=== PATIENT | male | born 1955 | race Caucasian/White ===

== ENCOUNTER 2017-04-11 03:49 | Inpatient (IN) | payer MEDICAID, OTHER ==
--- NOTE | 2017-04-11 03:53 | EDPHY ---
H & P HPI/ROS: HPI CHIEF COMPLAINT: Left lateral chest and abdominal pain HISTORY OF PRESENT ILLNESS: This patient is 61-year-old male presents emergency room with pain describes as sharp stabbing worse when he takes a deep breath into his left lateral chest wall. If the area between his left lower rib cage lateral aspect and left upper abdomen. Patient tells me this started since 10:00 a.m. and as per persistent all day yesterday and into the evening tonight. He denies any abdominal pain with palpation but does state that he takes deep breath in he has sharp stabbing pain left lateral ribs is also worse when he moves. Denies trauma. He does report to me yesterday he had surgery at [facility] by Dr. Sherman. He reports to me that he had general anesthesia and had a deep pelvic abscess drained. States he did not stay overnight in the hospital when in in the morning and then was released at night. Denies fever, vomiting, diarrhea. Denies lower abdominal pain. Denies rectal pain. Pain is left lateral ribs worse with deep inspiration. Denies shortness of breath or chest pain. Past Medical History: Ischemic cardiomyopathy, V-tach, PTSD, chronic chest wall pain, coronary artery disease, AFib, hypertension, tobacco abuse Past Surgical History: AICD, pericardiocentesis Social History: Denies daily use of drugs alcohol tobacco products. Family History: Noncontributory ROS REVIEW OF SYSTEMS: A comprehensive 10 point review of systems is otherwise negative aside from elements mentioned in the history of present illness. Exam Constitutional appears dehydrated, dry mucous membrane, nontoxic triage nursing summary reviewed, vital signs reviewed, awake/alert. Eyes normal conjunctivae and sclera, EOMI, PERRLA. HENT normal inspection, atraumatic, moist mucus membranes, no epistaxis, neck supple/ no meningismus, no raccoon eyes. Respiratory clear to auscultation bilaterally, normal breath sounds, no respiratory distress, no wheezing. Cardiovascular chest wall there is nontender to palpation, rate normal, regular rhythm, no murmur, no edema, distal pulses normal. Gastrointestinal soft, non-tender, no rebound, no guarding, normal bowel sounds, no distension, no pulsatile mass. Genitourinary no CVA tenderness. Musculoskeletal no midline vertebral tenderness, full range of motion, no calf swelling, no tenderness of extremities, no meningismus, good pulses, neurovascularly intact. Skin pink, warm, & dry, no rash, skin atraumatic. Neurologic awake, alert and oriented x 3, AAOx3, moves all 4 extremities equally, motor intact, sensory intact, CN II-XII intact, normal cerebellar, normal vision, normal speech. Psychiatric normal mood/affect. Heme/Lymph/Immune no lymphadenopathy. 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 Impression time of EKG 4:17 a.m., this is sinus rhythm rate of 70 first-degree AV block [place] interval 216 Q-waves present V1 V2 V3 V4. Otherwise unremarkable EKG. T-wave flattening in inferior leads. ED x-ray chest two view: Negative for acute cardiopulmonary disease. Specifically I do not visualize a pneumothorax. 0520AM: Given this patient's left-sided lateral pleuritic pain he does have a positive D-dimer. Will proceed with CT angiogram of the chest. He does have risk factors given his age, recent surgery. Will also proceed with CT abdomen pelvis with IV contrast given recent abdominal surgery and left upper quadrant left lower lung pain 0540AM: Patient's CT scan chest abdomen pelvis shows a left lower lobe pneumonia with micro abscesses. Significant left lower lobe pneumonia. As well as a small abscess para colonic deep in the pelvis 4 cm. Given the patient 's having left-sided pleuritic pain there is no pulmonary embolism seen on the CT scan. However given that he has a pneumonia left lower lobe with microabscesses this makes this a complicated pneumonia. He is not hypoxic here. He does have white count. He does have left-sided pleuritic pain. I will cover him with broad-spectrum antibiotics IV vancomycin and IV Zosyn. The patient need to be admitted the hospital for this pneumonia. Infectious Disease will need to be consulted. I wonder due to his large perirectal abscess that was recently drain by Dr. Sherman on the 09 of April or 2 days ago that he may have seeded the left lower lobe from the infection is abdomen. I have updated the patient he is okay with being admitted. Broad-spectrum antibiotics been given. I will treat this as a complicated pneumonia. 0548AM: I spoke with Dr. Sherman about this patient. He understands the patient is coming in to [facility]. Plan will be for broad- spectrum antibiotics, infectious disease consult and admission to the hospitalist service. 0548AM: I spoke with the hospalist service who agrees to admit this patient. Dr. Chavis. Patient is hemodynamically stable no acute distress. Lactic acid less than 2. Vital signs noted. Patient updated. Agrees for admission. Source: Patient - Personal History Tetanus Vaccine Date: > 10 years - Medical/Surgical History Hx Asthma: Yes Hx Chronic Respiratory Disease: No Hx Diabetes: No Hx Cardiac Disease: Yes Hx Renal Disease: No Hx Cirrhosis: No Hx Alcoholism: No Hx HIV/AIDS: No Hx Splenectomy or Spleen Trauma: No Other PMH: Asthma, knee surgery,afib, V-tach,AICD, HTN, panic attacks since pacemaker inserted 3 mos ago. FALL WITH BAKERS CYST R KNEE - Social History Smoking Status: Former smoker Constitutional: Initial Vital Signs Temperature (C) 37.2 C 04/11/17 04:00 Heart Rate 74 04/11/17 04:00 Respiratory Rate 18 04/11/17 04:00 Blood Pressure 141/72 H 04/11/17 04:00 O2 Sat (%) 98 04/11/17 04:00 O2 Delivery Mode Room Air Allergies/Adverse Reactions: No Known Allergies Allergy (Unverified 04/11/17 03:53) Home Medications: Medication Instructions Recorded Albuterol [Proventil Inhaler HFA 2 puffs IH BID PRN 04/05/15 (*)] Apixaban [Eliquis] 5 mg PO BID 04/24/15 Aspirin [Aspirin 81mg (*)] 81 mg PO HS 04/24/15 Herbals/Supplements -Info Only 1 each PO DAILY 04/24/15 Ipratropium [Atrovent Hfa (*)] 2 puffs IH Q6 PRN 05/28/15 Sotalol HCl [Sotalol] 120 mg PO BID 05/28/15 Calcium Citrate [Citracal] 400 mg PO DAILY 06/04/15 Cholecalciferol Vit D3 [Vitamin D3 4,000 units PO DAILY 06/04/15 2000 units] Cyanocobalamin [Vitamin B12 (*)] 2,000 mcg PO HS 06/04/15 Multivitamins [Multivitamin (*)] 1 each PO HS 06/18/15 Ascorbic Acid [Vitamin C 500 mg 1,000 mg PO DAILY 04/11/17 (*)] Atorvastatin Calcium [Lipitor 20 20 mg PO HS 04/11/17 mg (*)] Colchicine [Colchicine (*)] 0.6 mg PO HS 04/11/17 Glucosamine/Chondroitin 1 each PO DAILY 04/11/17 [Glucosamine/Chondroitin (*)] Lisinopril [Zestril 2.5 mg (*)] 2.5 mg PO HS 04/11/17 [place]-3 Fatty Acids [Fish Oil 1000 2,000 mg PO BID 04/11/17 mg (*)] levOFLOXACIN [levAQUIN (*)] 750 mg PO DAILY 04/11/17 metroNIDAZOLE [Flagyl 500 mg (*)] 500 mg PO TID 04/11/17 oxyCODONE/APAP 5/325 [Percocet 1 - 2 tab PO Q6H PRN 04/11/17 5/325 (*)] Medical Decision Making - Data Points Laboratory Results: Laboratory Results 04/11/17 04:19 04/11/17 04:19 Medications Given: Acetaminophen (Tylenol) 650 mg PO Q4HRS PRN PRN Reason: Pain, Mild/Fever, Can Take PO Stop: 10/08/17 06:37 Last Admin: 04/14/17 12:26 Dose: 650 mg Albuterol/Ipratropium (Duoneb) 3 ml IH Q6HRS [facility] Stop: 10/09/17 11:59 Last Admin: 04/16/17 10:41 Dose: 3 ml Apixaban (Eliquis) 5 mg PO BID [facility] Stop: 10/08/17 20:59 Last Admin: 04/13/17 08:22 Dose: 5 mg Ascorbic Acid (Vitamin C) 1,000 mg PO DAILY [facility] Stop: 10/09/17 08:59 Last Admin: 04/16/17 08:43 Dose: 1,000 mg Aspirin (Aspirin) 81 mg PO HS [facility] Stop: 10/08/17 20:59 Last Admin: 04/15/17 21:13 Dose: 81 mg Atorvastatin Calcium (Lipitor) 20 mg PO HS [facility] Stop: 10/08/17 20:59 Last Admin: 04/15/17 21:14 Dose: 20 mg Calcium Carbonate (Oyster Shell Calcium) 500 mg PO DAILY [facility] Stop: 10/09/17 08:59 Last Admin: 04/16/17 08:44 Dose: 500 mg Cholecalciferol (Vitamin D) 4,000 units PO DAILY [facility] Stop: 10/09/17 08:59 Last Admin: 04/16/17 08:43 Dose: 4,000 units Colchicine (Colchicine) 0.6 mg PO HS [facility] Stop: 10/08/17 20:59 Last Admin: 04/15/17 21:14 Dose: 0.6 mg Hydromorphone HCl (Dilaudid) 0.2 - 0.4 mg IVP Q2HRS PRN PRN Reason: Pain, Severe Stop: 04/26/17 13:44 Last Admin: 04/16/17 14:30 Dose: 0.4 mg Ceftriaxone Sodium 2 gm/ (Dextrose) 50 mls @ 100 mls/hr IV DAILY LUAN PRN Reason: Protocol Stop: 05/12/17 09:59 Last Admin: 04/16/17 08:45 Dose: 50 mls Metronidazole/Sodium Chloride (Flagyl 500 Mg (Premix)) 100 mls @ 100 mls/hr IV Q8HRS LUAN PRN Reason: Protocol Stop: 05/12/17 13:59 Last Admin: 04/16/17 13:38 Dose: 100 mls Sodium Chloride (Ns) 1,000 mls @ 100 mls/hr IV CONT [facility] Stop: 10/11/17 15:14 Last Admin: 04/16/17 04:00 Dose: 1,000 mls Ipratropium [place] (Atrovent Hfa) 2 puffs IH Q6 PRN PRN Reason: Short of Breath/Dyspnea Stop: 10/08/17 14:07 Last Admin: 04/15/17 19:29 Dose: 2 puffs Lisinopril (Zestril) 2.5 mg PO HS [facility] Stop: 10/08/17 20:59 Last Admin: 04/12/17 23:30 Dose: 2.5 mg Lorazepam (Ativan) 0.5 - 1 mg PO Q6 PRN PRN Reason: Anxiety, Able to Take PO Stop: 10/08/17 14:10 Last Admin: 04/16/17 00:11 Dose: 1 mg Multivitamins (Tab-A-Gabriela) 1 each PO HS [facility] Stop: 10/08/17 20:59 Last Admin: 04/15/17 21:14 Dose: 1 each Vebqu-4-Fkoe Ethyl Esters (Fish Oil) 2,000 mg PO BID [facility] Stop: 10/08/17 20:59 Last Admin: 04/16/17 08:45 Dose: 2,000 mg Oxycodone HCl (Oxycodone Ir) 5 - 10 mg PO Q3HRS PRN PRN Reason: Pain, Severe Able to Take PO Stop: 04/21/17 06:37 Last Admin: 04/16/17 13:38 Dose: 10 mg Polyethylene Glycol (Miralax) 17 gm PO DAILY PRN; Protocol PRN Reason: Constipation, patient prefers Stop: 10/10/17 09:18 Last Admin: 04/13/17 10:11 Dose: 17 gm Senna/Docusate Sodium (Senokot-S) 1 - 2 tab PO BID LUAN PRN Reason: Protocol Stop: 10/10/17 20:59 Last Admin: 04/16/17 08:44 Dose: 2 tab Sotalol HCl (Betapace) 120 mg PO BID [facility] Stop: 10/08/17 20:59 Last Admin: 04/16/17 08:42 Dose: 120 mg Vitamin B Complex (Vitamin B12) 2,000 mcg PO HS [facility] Stop: 10/08/17 20:59 Last Admin: 04/15/17 21:14 Dose: 2,000 mcg Discontinued Medications Bacitracin (Bacitracin Ointment Tube) Confirm Administered Dose 14.2 janeth TP .STK -MED ONE Stop: 04/15/17 09:58 Last Admin: 04/15/17 15:21 Dose: Not Given Bupivacaine HCl/Epinephrine Bitart (Bupivacaine/Epi) Confirm Administered Dose 30 ml .ROUTE .STK-MED ONE Stop: 04/12/17 08:44 Last Admin: 04/12/17 11:47 Dose: Not Given Bupivacaine HCl/Epinephrine Bitart (Bupivacaine/Epi) Confirm Administered Dose 30 ml .ROUTE .STK-MED ONE Stop: 04/15/17 07:59 Last Admin: 04/15/17 09:55 Dose: 30 ml Fentanyl (Sublimaze) 25 - 50 mcg IVP Q5M PRN PRN Reason: PACU, Immediate Moderate Pain Stop: 04/15/17 11:01 Last Admin: 04/15/17 10:47 Dose: 25 mcg Hydrogen Peroxide (Hydrogen Peroxide) Confirm Administered Dose 23.6 janeth TP .STK -MED ONE Stop: 04/12/17 08:44 Last Admin: 04/12/17 11:47 Dose: Not Given Hydromorphone HCl (Dilaudid) 1 mg IVP EDNOW ONE Stop: 04/11/17 04:15 Last Admin: 04/11/17 04:31 Dose: 1 mg Hydromorphone HCl (Dilaudid) 0.2 - 0.4 mg IVP Q10M PRN PRN Reason: PACU, Severe Pain Stop: 04/15/17 11:02 Last Admin: 04/15/17 11:04 Dose: 0.4 mg Sodium Chloride (Ns) 1,000 mls @ 0 mls/hr IV EDNOW ONE; Wide Open PRN Reason: Protocol Stop: 04/11/17 04:07 Last Admin: 04/11/17 04:23 Dose: 1,000 mls Piperacillin/Tazobactam/Dextrose (Zosyn (Premix)) 100 mls @ 200 mls/hr IV EDNOW ONE PRN Reason: Protocol Stop: 04/11/17 06:09 Last Admin: 04/11/17 06:03 Dose: 100 mls Sodium Chloride (Ns) 1,000 mls @ 250 mls/hr IV ONCE ONE Stop: 04/11/17 10:37 Last Admin: 04/11/17 08:10 Dose: 1,000 mls Piperacillin/Tazobactam/Dextrose (Zosyn 3.375 Gm (Premix)) 50 mls @ 100 mls/hr IV Q6HRS [facility]AN PRN Reason: Protocol Stop: 05/11/17 11:59 Last Admin: 04/12/17 05:21 Dose: 50 mls Vancomycin/Sodium Chloride (Vancomycin 1 Gm (Premix)) 250 mls @ 250 mls/hr IV ONCE ONE PRN Reason: Protocol Stop: 04/11/17 07:59 Last Admin: 04/11/17 08:10 Dose: 250 mls Lactated Ringer's (Lr) 1,000 mls @ 0 mls/hr IV ONCE ONE PRN Reason: KVO Stop: 04/12/17 10:11 Last Admin: 04/12/17 10:45 Dose: 1,000 mls Sodium Chloride (Ns) 500 mls @ 1,500 mls/hr IV ONCE ONE Stop: 04/13/17 09:37 Last Admin: 04/13/17 10:11 Dose: 500 mls Sodium Chloride (Ns) 500 mls @ 1,500 mls/hr IV ONCE ONE Stop: 04/14/17 15:24 Last Admin: 04/14/17 15:29 Dose: 500 mls Sodium Chloride (Ns) 500 mls @ 0 mls/hr IV ONCE ONE PRN Reason: Wide Open Stop: 04/15/17 20:23 Last Admin: 04/15/17 20:32 Dose: 500 mls Ketorolac Tromethamine (Toradol) 30 mg IVP ONCE ONE Stop: 04/12/17 09:40 Last Admin: 04/12/17 09:58 Dose: 30 mg Ketorolac Tromethamine (Toradol) 15 mg IVP Q6HRS [facility] Stop: 04/17/17 17:59 Last Admin: 04/13/17 13:55 Dose: Not Given Lorazepam (Ativan Injection) 0.5 mg IVP EDNOW ONE Stop: 04/11/17 05:04 Last Admin: 04/11/17 05:08 Dose: 0.5 mg Methylene Blue (Provayblue 0.5%) Confirm Administered Dose 50 mg .ROUTE .STK- MED ONE Stop: 04/12/17 08:45 Last Admin: 04/12/17 11:47 Dose: Not Given Morphine Sulfate (Morphine) 2 - 4 mg IVP Q4HRS PRN PRN Reason: Pain, Severe Unable to Take PO Stop: 04/21/17 14:11 Last Admin: 04/16/17 11:35 Dose: 4 mg Departure - Departure Disposition: [facility] Acute Clinical Impression: Paracolic abscess Pneumonia Qualifiers: Pneumonia type: due to unspecified organism Laterality: left Lung location: lower lobe of lung Qualified Code(s): J18.1 - Lobar pneumonia, unspecified organism Condition: Fair
[2017-04-11] MEDS ORDERED: NS 1,000 ML IV ONE ×2 (04:06→06:38)
[2017-04-11] MEDS ORDERED: HYDROmorphONE/DILAUDID 1 MG/ML SYR IVP ONE (04:14)
[2017-04-11 04:33] LABS: % IMMATURE GRANULYOCYTES 0.8 % (0.0-1.1); ABSOLUTE IMMATURE GRANULOCYTES 0.13 10^3/uL (0.00-0.10); ADD DIFF? NO; ADD MORPH? NO; ADD SCAN? NO; ATYPICAL LYMPHOCYTE FLAG 0 (0-99); FRAGMENT RBC FLAG 0 (0-99); HEMATOCRIT 36.9 % (40.0-51.0); HEMOGLOBIN 12.4 g/dL (13.7-17.5); LEFT SHIFT FLG 10 (0-99); LIPEMIA HEMOLYSIS FLAG 80 (0-99); MEAN CELL HEMOGLOBIN 31.6 pg (27.9-34.1); MEAN CELL HEMOGLOBIN CONCENTR. 33.6 g/dL (32.4-36.7); MEAN CELL VOLUME 93.9 fL (81.5-99.8); MEAN PLATELET VOLUME 9.7 fL (8.7-11.7); PLATELET CLUMPS FLAG 10 (0-99); PLATELET COUNT 446 10^3/uL (150-400); RED BLOOD CELL COUNT 3.93 10^6/uL (4.40-6.38); RED CELL DISTRIBUTION WIDTH 13.6 % (11.5-15.2)
[2017-04-11 04:43] LABS: ALANINE AMINOTRANSFERASE 42 IU/L (21-72); ALBUMIN 3.4 g/dL (3.5-5.0); ALKALINE PHOSPHATASE 123 IU/L (38-126); ANION GAP 15 mEq/L (8-16); ASPARTATE AMINOTRANSFERASE 23 IU/L (17-59); BILIRUBIN,TOTAL 0.6 mg/dL (0.1-1.4); BILIRUBIN-CONJUGATED 0.5 mg/dL (0.0-0.5); BILIRUBIN-UNCONJUGATED 0.1 mg/dL (0.0-1.1); CALCIUM 8.8 mg/dL (8.5-10.4); CARBON DIOXIDE 26 mEq/l (22-31); CHLORIDE 102 mEq/L (97-110); CREATININE 0.8 mg/dL (0.7-1.3); GLOMERULAR FILTRATION RATE > 60; GLUCOSE 108 mg/dL (70-100); INR 1.29 (0.83-1.16); POTASSIUM 4.2 mEq/L (3.5-5.2); PROTIME(PATIENT) 16.1 SEC (12.0-15.0); SODIUM 143 mEq/L (134-144); TOTAL PROTEIN 6.3 g/dL (6.3-8.2)
--- NOTE | 2017-04-11 04:48 | CPEKG ---
Heart Rate: 70 RR Interval: 857 P-R Interval: 216 QRSD Interval: 88 QT Interval: 420 QTC Interval: 454 P [place]: 39 QRS [place]: 45 T Wave [place]: -26 EKG Severity - ABNORMAL ECG - EKG Impression: ATRIAL-PACED COMPLEXES EKG Impression: PROBABLE LEFT ATRIAL ABNORMALITY EKG Impression: CONSIDER ANTERIOR INFARCT EKG Impression: BORDERLINE T ABNORMALITIES, INFERIOR LEADS EKG Impression: ATRIAL PACING IS NEW IN COMPARISON TO PRIOR ECG (31-JAN-16) Electronically Signed By: Dominick Escobar 13-Apr-2017 15:31:06
[2017-04-11 04:55] LABS: TROPONIN I < 0.012 ng/mL (0-0.034)
[2017-04-11] MEDS ORDERED: IOPAMIDOL (ISOVUE 370) 100 ML BTL IV ONE (05:00)
[2017-04-11] MEDS ORDERED: LORazepam 2 MG/ML INJ IVP ONE (05:03)
[2017-04-11] MEDS ORDERED: VANCOMYCIN HCL/NORMAL SALINE 250 ML IV ONE ×2 (05:40→07:00)
[2017-04-11] MEDS ORDERED: PIPERACILLIN/TAZO 4.5 GM/DEX 100 ML IV ONE (05:40)
[2017-04-11] MEDS ORDERED: ONDANSETRON DISINTEGRATING 4 MG TAB PO PRN (06:38)
[2017-04-11] MEDS ORDERED: ONDANSETRON 4 MG/2 ML VIAL IVP PRN (06:38)
--- NOTE | 2017-04-11 06:50 | PDGENHP ---
History and Physical - Chief Complaint Chest pain - History of Present Illness 61 yo M w/ hx of ventricular arrhythmias s/p AICD on sotalol, afib, cardiomyopathy, and COPD presents with L sided chest pain. About 10 days ago he began to have lower back and sophie-rectal pain accompanied by loose bowel movements. He presented to [facility] ED on Monday 04/09 and was found to have a 6x5 cm sophie-rectal abscess. This was drained on the same day and he was discharged with a 7 day course of metronidazole and levofloxacin. Then, on day prior to admission, he noticed worsening fatigue and left sided chest wall pain. He denies fever, chills, night sweats, cough, and sputum production. Additionally, he denies unintentional weight loss, signs/symptoms of aspiration, or difficulty swallowing. History Information - Allergies/Home Medication List Allergies/Adverse Reactions: No Known Allergies Allergy (Unverified 04/11/17 03:53) Home Medications: Albuterol [Proventil Inhaler HFA (*)] 2 puffs IH BID PRN 04/05/15 [Last Taken ] Apixaban [Eliquis] 5 mg PO BID 04/24/15 [Last Taken 10/20/15] Aspirin [Aspirin 81mg (*)] 81 mg PO HS 04/24/15 [Last Taken 10/20/15] Herbals/Supplements -Info Only 1 each PO DAILY 04/24/15 [Last Taken 10/20/15] Ipratropium [Atrovent Hfa (*)] 2 puffs IH Q6 PRN 05/28/15 [Last Taken 10/20/15] Sotalol HCl [Sotalol] 120 mg PO BID 05/28/15 [Last Taken 10/20/15] Ascorbic Acid [Vitamin C] 1,000 mg PO DAILY 06/04/15 [Last Taken 10/20/15] Calcium Citrate [Citracal] 400 mg PO DAILY 06/04/15 [Last Taken 10/20/15] Cholecalciferol Vit D3 [Vitamin D3 2000 units] 4,000 units PO DAILY 06/04/15 [ Last Taken 10/20/15] Cyanocobalamin [Vitamin B12 (*)] 2,000 mcg PO HS 06/04/15 [Last Taken 10/20/15] [place]-3S/Dha/Epa/Fish Oil [Fish Oil 1,200 mg Softgel] 2 each PO BID 06/04/15 [ Last Taken 10/20/15] Multivitamins [Multivitamin (*)] 1 each PO DAILY 06/18/15 [Last Taken 10/20/15] Atorvastatin Calcium 04/11/17 [Last Taken Unknown] Colchicine 04/11/17 [Last Taken Unknown] Coq-10 04/11/17 [Last Taken Unknown] GARLIC 04/11/17 [Last Taken Unknown] Lisinopril 04/11/17 [Last Taken Unknown] Nasent Iodine 04/11/17 [Last Taken Unknown] I have personally reviewed and updated: family history, medical history - Past Medical History atrial fibrillation, COPD Additional medical history: Ventricular arrhythmia s/p AICD - Surgical History Additional surgical history: AICD placement - Family History Positive for: CAD (30 pack years) - Social History Smoking Status: Former smoker Alcohol Use: None Drug Use: None Review of Systems ROS: 10pt was reviewed & negative except for what was stated in HPI & below Physical Exam Temp Pulse Resp BP Pulse Ox 36.8 C 63 18 105/62 96 04/11/17 06:22 04/11/17 06:22 04/11/17 06:22 04/11/17 06:22 04/11/17 06:22 Constitutional: no apparent distress, chronically ill appearing Eyes: PERRL, EOMI Ears, Nose, Mouth, Throat: moist mucous membranes, no oral mucosal ulcers Cardiovascular: regular rate and rhythym, systolic murmur (2/6 PRECIOUS @ left sternal border) Respiratory: no respiratory distress, clear to auscultation Gastrointestinal: normoactive bowel sounds, soft, non-tender abdomen, other (No obvious visual abnormality on sophie-rectal examination) Musculoskeletal: full muscle strength, no muscle tenderness Neurologic: AAOx3, CN II-XII Intact Psychiatric: interacting appropriately, not anxious Lab Data & Imaging Review 04/11/17 04:19 04/11/17 04:19 WBC 17.27 10^3/uL (3.80-9.50) H 04/11/17 04:19 RBC 3.93 10^6/uL (4.40-6.38) L 04/11/17 04:19 Hgb 12.4 g/dL (13.7-17.5) L 04/11/17 04:19 Hct 36.9 % (40.0-51.0) L 04/11/17 04:19 MCV 93.9 fL (81.5-99.8) 04/11/17 04:19 MCH 31.6 pg (27.9-34.1) 04/11/17 04:19 MCHC 33.6 g/dL (32.4-36.7) 04/11/17 04:19 RDW 13.6 % (11.5-15.2) 04/11/17 04:19 Plt Count 446 10^3/uL (150-400) H 04/11/17 04:19 MPV 9.7 fL (8.7-11.7) 04/11/17 04:19 Neut % (Auto) 79.9 % (39.3-74.2) H 04/11/17 04:19 Lymph % (Auto) 6.5 % (15.0-45.0) L 04/11/17 04:19 [place] % (Auto) 8.7 % (4.5-13.0) 04/11/17 04:19 Eos % (Auto) 3.8 % (0.6-7.6) 04/11/17 04:19 Baso % (Auto) 0.3 % (0.3-1.7) 04/11/17 04:19 Nucleat RBC Rel Count 0.0 % (0.0-0.2) 04/11/17 04:19 Absolute Neuts (auto) 13.81 10^3/uL (1.70-6.50) H 04/11/17 04:19 Absolute Lymphs (auto) 1.12 10^3/uL (1.00-3.00) 04/11/17 04:19 Absolute Monos (auto) 1.50 10^3/uL (0.30-0.80) H 04/11/17 04:19 Absolute Eos (auto) 0.66 10^3/uL (0.03-0.40) H 04/11/17 04:19 Absolute Basos (auto) 0.05 10^3/uL (0.02-0.10) 04/11/17 04:19 Absolute Nucleated RBC 0.00 10^3/uL (0-0.01) 04/11/17 04:19 Immature Gran % 0.8 % (0.0-1.1) 04/11/17 04:19 Immature Gran # 0.13 10^3/uL (0.00-0.10) H 04/11/17 04:19 PT 16.1 SEC (12.0-15.0) H 04/11/17 04:19 INR 1.29 (0.83-1.16) H 04/11/17 04:19 APTT 32.0 SEC (23.0-38.0) 04/11/17 04:19 D-Dimer 3.95 ug/mLFEU (0.00-0.50) H 04/11/17 04:19 VBG Lactic Acid 1.1 mmol/L (0.7-2.1) 04/11/17 04:19 Sodium 143 mEq/L (134-144) 04/11/17 04:19 Potassium 4.2 mEq/L (3.5-5.2) 04/11/17 04:19 Chloride 102 mEq/L (97-110) 04/11/17 04:19 Carbon Dioxide 26 mEq/l (22-31) 04/11/17 04:19 Anion Gap 15 mEq/L (8-16) 04/11/17 04:19 BUN 12 mg/dL (7-23) 04/11/17 04:19 Creatinine 0.8 mg/dL (0.7-1.3) 04/11/17 04:19 Estimated GFR > 60 04/11/17 04:19 Glucose 108 mg/dL (70-100) H 04/11/17 04:19 Calcium 8.8 mg/dL (8.5-10.4) 04/11/17 04:19 Total Bilirubin 0.6 mg/dL (0.1-1.4) 04/11/17 04:19 Conjugated Bilirubin 0.5 mg/dL (0.0-0.5) 04/11/17 04:19 Unconjugated Bilirubin 0.1 mg/dL (0.0-1.1) 04/11/17 04:19 AST 23 IU/L (17-59) 04/11/17 04:19 ALT 42 IU/L (21-72) 04/11/17 04:19 Alkaline Phosphatase 123 IU/L (38-126) 04/11/17 04:19 Troponin I < 0.012 ng/mL (0-0.034) 04/11/17 04:19 Total Protein 6.3 g/dL (6.3-8.2) 04/11/17 04:19 Albumin 3.4 g/dL (3.5-5.0) L 04/11/17 04:19 Lipase 66.0 IU/L (23-300) 04/11/17 04:19 Imaging Review: Discussed imaging results with ED physician Dr. Pulido. Per radiology prelim reports: Chest: LLL pneumonia with microabsesses , no PE ABD/Pelvis :mesenteric edema , small gallstone, 4 cm perirectal abscess with air in lumen, no free air Visualized and Interpreted EKG results: Yes EKG additional interpertation: Atrially paced, poor R wave progression, no signs of ischemia Assessment & Plan Assessment: 61 yo M w/ hx of ventricular arrhythmias s/p AICD, afib on Eliquis, and COPD presenting with persistent perirectal abscess despite recent drainage and newly diagnosed LLL pneumonia w/ microabscesses. Plan: 1. LLL pneumonia with microabscesses - Noting relative lack of symptoms, suspect anaerobic organism responsible. May have seeded from sophie-rectal abscess. Patient denies symptoms of aspiration and malignancy (weight loss, night sweats, etc). - Vanc/Zosyn for now - IVF, blood and sputum cultures ordered - ID consult 2. Sophie-rectal abscess - Drained 2 days prior to admission at [facility]. Abscess 5x6 cm at that time per review of their records. Noted to be 4 cm on preliminary read here. Had bowel obstruction in 2016 followed up by virtual colonoscopy without clear evidence of malignancy. He may benefit from a full colonoscopy to rule out malignancy. - Antibiotics as above - Surgery consulted, will review imaging - Will maintain patient NPO 3. Hx of ventricular arrhythmias s/p AICD - On sotalol as an outpatient, ECG with atrially paced rhythm and no signs of ischemia. 4. Afib - On Eliquis and sotalol as an outpatient 5. COPD - No evidence of exacerbation, on ipratropium as an outpatient. Diet - NPO Code - Full Ppx - Eliquis Dispo - Admit to inpatient
[2017-04-11 11:40] LABS: COLOR YELLOW; LEUKOCYTE ESTERASE,URINE NEGATIVE (NEGATIVE); NITRITE,URINE NEGATIVE (NEGATIVE)
--- NOTE | 2017-04-11 11:45 | HOSPPROG ---
Hospitalist Progress Note Assessment/Plan: 61-year-old man with a recent diagnosis for perirectal abscess. It was drained 2 days ago at a [facility] and started on antibiotics Levaquin and Flagyl. The patient did not start the Levaquin but did start the Flagyl postop. He comes in for increasing left-sided chest pain and was diagnosed with a left lower lobe pneumonia with microabscesses. # left lower lobe pneumonia with microabscesses noted on CT scan. Patient with pain but relatively minimal cough. Question if he seated this from perirectal abscess or possible aspiration. * Continue current antibiotics to treat for anaerobes * Discussed with Dr. Shultz from Infectious Disease. # perirectal abscess, drain 2 days prior to admission at the [facility] by Dr. Sherman. Dr. Sherman contacted from the emergency department who will review yesterday's CT scan determine whether he needs further I and D or ongoing antibiotic therapy. * Will add IV pain medication while in hospital. # history of ventricular arrhythmias status post AICD placement currently on sotalol. # atrial fibrillation on Eliquis and sotalol # COPD: Stable # Anxiety, severe. will add prn ativan. Patient will need greater than 2 midnight stay. Subjective: Patient new to [facility] chart reviewed. Currently complaining of a lot of rectal pain. Has some chest pain as well and shortness of breath. Objective: Vital Signs Temp Pulse Resp BP Pulse Ox 36.7 C 70 18 107/67 92 04/11/17 11:40 04/11/17 11:40 04/11/17 11:40 04/11/17 11:40 04/11/17 11:40 04/10/17 04/11/17 04/12/17 05:59 05:59 05:59 Intake Total 1130 Balance 1130 PT 16.1 SEC (12.0-15.0) H 04/11/17 04:19 INR 1.29 (0.83-1.16) H 04/11/17 04:19 - Physical Exam Constitutional: uncomfortable Eyes: PERRL, EOMI Ears, Nose, Mouth, Throat: moist mucous membranes, hearing normal Cardiovascular: regular rate and rhythym Respiratory: no respiratory distress, reduced air movement Gastrointestinal: no palpable masses, No tenderness (Abdominal) Genitourinary: no bladder fullness Skin: warm Neurologic: AAOx3 Psychiatric: interacting appropriately ICD10 Worksheet Patient Problems: Problems Problem Status Onset COPD with acute exacerbation Acute Acute respiratory failure with hypoxia Acute ICD (implantable cardioverter-defibrillator) in place Acute ICD (implantable cardioverter-defibrillator), dual, in situ Acute Pericarditis Acute Abdominal pain Acute Small bowel obstruction Acute Mass of cecum Acute Chronic chest pain Acute Pneumonia Acute Paracolic abscess Acute
[2017-04-11] MEDS: oxyCODONE IR 5 MG TAB PO PRN ×3 (11:53→20:51)
[2017-04-11] MEDS: PIPERACILLIN/TAZO 3.375 GM/DEX 50 ML IV SCH ×2 (11:53→18:15)
--- NOTE | 2017-04-11 13:36 | GCON ---
[f rep st] CONSULTATION DATE OF CONSULTATION: 04/11/2017 REFERRING PHYSICIAN: Trae Hernadez MD HISTORY OF PRESENT ILLNESS: A 61-year-old male presents with left chest pain. Patient is known to me from ER visit on 04/29/2017 at [facility]. There he presented with a 10-day history of sacr al and back pain. Patient was found to have a large perirectal abscess on CT scan and was taken for operative drainage at that time. Patient was discharged home the next day, but, per the patient, d eveloped progressive left-sided chest pain that is worse with breathing. Patient states he did not take the antibiotics as instructed and held Levaquin. He did take the Flagyl appropriately. Patien t denies any fevers at home. Patient states currently that his chest pain has not improved signific antly. Patient denies any abdominal or back pain currently. Patient denies recent bowel movement. The patient has not had a cough. PAST MEDICAL HISTORY: Significant for atrial fibrillation, COPD, cardiomyopathy. PAST SURGICAL HISTORY: As per the above and for AICD placement. MEDICATIONS: On admission include albuterol, Atrovent, sotalol, Eliquis, and supplements. ALLERGIES: No known drug allergies. SOCIAL HISTORY: Patient is a nonsmoker. PHYSICAL EXAMINATION: VITAL SIGNS: Temperature 36.7, pulse 70, respirations 18, blood pressure is 107/67. GENERAL: He is an alert male who appears uncomfortable. HEENT: His sclerae are anicteric . There is no evidence of jugular venous distention. HEART: Irregular. LUNGS: His breath sounds are decreased in the bilateral bases. ABDOMEN: Soft, nontender, without masses. RECTAL: Patient was referred for rectal exam. EXTREMITIES: Without cyanosis, clubbing, or edema. DIAGNOSTIC DATA: Patient has a CBC with a white count of 17.3, hemoglobin 12.4, hematocrit 36.9, an d platelets of 446. Chemistries demonstrate sodium of 143, potassium 4.2, chloride 102, CO2 26, BUN 12, creatinine 0.8, and glucose of 108. LFTs are essentially normal with a lipase of 66. DIAGNOSTIC IMAGING: Patient has a CT scan of the chest, abdomen, and pelvis. Patient is noted to h ave inflammation and microabscesses in the left lower lobe. No pneumothorax is identified. Patient does have an abscess cavity in the perirectal area consistent with prior drainage with a large air pocket and thickened bob. Small amount of fluid is noted in this cavity. ASSESSMENT AND PLAN: A 61-year-old male with new-onset left lower lobe microabscesses and inflammat ion as well as perirectal abscess. The patient has been placed on vancomycin and Zosyn. I have rec ommended continuation of these antibiotics while awaiting Infectious Disease consultation. At this point, it does not appear surgical intervention will improve the left lower lobe microabscesses. The perirectal abscess is likely adequately drained presently but may require further drainage eithe r operatively or through Interventional Radiology in the near future if it does not improve. This w as discussed at length with the patient. His questions have been answered. We will continue to fol low. /[id number]/MODL
--- NOTE | 2017-04-11 13:51 | GCON ---
[f rep st] CONSULTATION INFECTIOUS DISEASE CONSULTATION DATE OF CONSULTATION: 04/11/2017 REFERRING PHYSICIAN: Paula Krishna MD REASON FOR CONSULTATION: Perirectal abscess, pneumonia with microabscess, for further evaluation an d opinion. CHIEF COMPLAINT: Left-sided chest pain and abdominal pain after recent drainage of perirectal absce ss. HISTORY OF PRESENT ILLNESS: This is a 61-year-old male with a past medical history signif icant for ventricular arrhythmia, status post AICD, atrial fibrillation, cardiomyopathy, COPD, who a pparently was having pain and pressure involving his right buttocks region over the past several day s. He presented to the ER 2 days ago, where a CAT scan was done. It showed a 6.5 x 5.1 pericolonic abscess. He was seen by Dr. Sherman from Surgery, where he was taken to the OR. It initially was aspirated, and then it was drained out. Cultures from that are showing, upon review of micro data, moderate growth of Strep anginosus and rare growth of E coli. I called the micro lab, and they did not set up susceptibilities, apparently because organisms were not seen on the Gram stain. They shaheen l now subculture and then try to set up susceptibilities. The patient apparently was discharged chintan t same day on Levaquin and Flagyl. Due to yesterday he started to develop left-sided chest pain and pressure, he came in for further evaluation. He states he denied any fevers or shaking chills. He does have some shortness of breath. Denies naomi cough or sputum production. Followup CAT scan do ne here shows that he has a 4 cm pericolonic fluid collection deep in the right hemipelvis. Blood c ultures x2 sets were drawn, and they are pending. He continues to have a leukocytosis of 17,000, wh ich was also noted at [facility]. He also had a CT of the chest done, which showed dense consolidation of the left lower lobe with microabscesses and a small left pleural effusion. The patient was place d on vancomycin and Zosyn here, and Infectious Disease is now consulted for further evaluation and o marcia. REVIEW OF SYSTEMS: GENERAL: Denied any fevers or shaking chills. HEAD: No headaches. EYES: No change in vision. ENT: No sore throat, difficulty swallowing, ear pain, or ear drainage. CARDIOVA SCULAR: Denies any palpitations but did have some chest pain. RESPIRATORY: Some shortness of eliana th. Denies cough or naomi sputum production. ABDOMEN: Left-sided abdominal pain. No nausea, vomi ting, or diarrhea. : No dysuria or hematuria. BACK: No otherwise back pain. He has pain in th e right buttocks region. MUSCULOSKELETAL: Denies any joint pains. LOWER EXTREMITIES: Denies any lower extremity edema. SKIN: Denies any rashes or open wounds. Rest of 10-point review of systems essentially negative, except for above. PAST MEDICAL HISTORY: Significant for ventricular arrhythmias, status post AICD, atrial fibrillatio n, cardiomyopathy, COPD. PAST SURGICAL HISTORY: Significant for AICD placement. SOCIAL HISTORY: Is a former smoker. Does not drink alcohol or do illicit drugs. He lives with his . FAMILY HISTORY: Significant for coronary artery disease. ALLERGIES: No known drug allergies. MEDICATIONS: As per NOV. PHYSICAL EXAMINATION: VITAL SIGNS: Temperature current 36.7, pulse is 70, blood pressure 107/67. Saturations are 92% on room air. Respiratory rate is 18. GENERAL: Patient is resting in bed, in n o acute respiratory distress. Awake, alert, and oriented x3. HEENT: Head is normocephalic, atraum atic. Eyes are without conjunctival injection or petechiae. Oropharynx is clear. No posterior sherrill thema or thrush. CARDIOVASCULAR: S1, S2. Regular rate and rhythm. He has a soft systolic murmur appreciated. RESPIRATORY: Decreased breath sounds on the left side with some coarse breath sounds noted. ABDOMEN: Positive bowel sounds in all 4 quadrants, soft, nontender, nondistended. No organ omegaly appreciated. EXTREMITIES: No lower extremity edema. MUSCULOSKELETAL: No obvious joint ef fusions. SKIN: He has some erythema noted on the right buttocks near the gluteal fold, which is in durated and mildly tender. No other peripheral stigmata of endocarditis noted. LABORATORY DATA: White blood cell count of 17.2, hemoglobin 12.4, platelets 446, neutrophil count 7 9%. INR 1.2. Venous lactic acid 1.1. Sodium 143, potassium 4.2, chloride 102, bicarb 26. BUN is 12, creatinine 0.8. AST 23, ALT 42, alkaline phosphatase 123, total bilirubin 0.6. Urinalysis is u nremarkable. Blood cultures x2 sets pending. CT of the abdomen and chest were reviewed by me and a re stated above. ASSESSMENT: 1. A 4 cm pericolonic fluid collection/abscess. 2. Left lower lobe pneumonia with microabscesses. 3. Heart murmur. PLAN: I reviewed records from [facility], including labs, CT and microbiologic data. Cultures there ar e growing out Strep anginosus in moderate amounts and rare E coli. I have spoken to the micro lab t here. There will subculture out and try to set up susceptibilities, which will get set up tomorrow. Would discontinue vancomycin and continue with Zosyn for now. Recommend surgery to re-evaluate as he will likely benefit with additional drainage. Await blood cultures to better direct antimicrobi al therapy. When I and D is done, would recommend additional cultures to be sent so as to better as sess his microbiologic data and to better direct his antimicrobial therapy. Would recommend a 2D ec ho to further evaluate for possible vegetations given that he has these pulmonary microabscesses. N o blood cultures were done at [facility]. Would recommend following up labs in the a.m. Thank you very much for allowing us the opportunity to care for your patient in consultation. /[id number]/MODL
[2017-04-11] MEDS ORDERED: ALBUTEROL 60 PUFFS/8 GM MDI IH PRN (14:08)
--- NOTE | 2017-04-11 15:12 | ECHO ---
[id number] + + [address] : : [place] [address] : : [phone] + + Adult Echocardiographic Report + + :Name: KEITH SMITH Jaydon Date: 04/11/2017 01:51 PM : : Hospital Admission Number: [id number] L ocation: 203: :: 1955 Gender: Male Height: 7 2 in : :Age: 61 yrs Race: WH Weight: 1 59 lb : :Reason For Study: Perirectal abscess/LLL pneumonia with : :microabscesses/murmur/eval for vegetation BSA: 1.9 meters2 : :History: ICD : + + MMode/2D Measurements \T\ Calculations IVSd: 0.53 cm LVIDd: 4.7 cm EDV(Teich): Ao root diam: LVPWd: 0.84 cm 103.2 ml 3.4 cm LA dimension: 3.6 cm LVLd ap4: 8.8 cm SV(MOD-sp4): EDV(MOD-sp4): 46.0 ml 89.0 ml LVLs ap4: 7.1 cm ESV(MOD-sp4): 43.0 ml EF(MOD-sp4): 51.7 % Normal Measurement Values: + + :LVIDd (3.5-5.7cm) IVSd (0.6-1.1cm) LVPWd (0.6-1.1cm) Aortic Root (2.0-3.7cm)Left Atrium (1.5-4.0cm): :LV Vol(d) (76-115ml) LV Vol(s) (29-48ml) Ejec Fraction (50-65%)PV Vasyl (0.6- 1.2m/s) TV Vasyl (0.4-1.0m/s) : :MV E Vasyl (0.8-1.0m/s)MV A Vasyl (0.3-1.0m/s)LVOT Vasyl (0.7-1.2m/s) Asc Ao Vasyl ( 0.9-1.8m/s) : + + Doppler Measurements \T\ Calculations MV E max vasyl: 84.4 cm/sec Ao V2 max: 149.3 cm/sec TR max vasyl: 313.6 cm/sec MV A max vasyl: 58.2 cm/sec Ao max P.9 mmHg TR max P.3 mmHg MV E/A: 1.4 Ao mean P.6 mmHg RAP systole: 10.0 mmHg Ao V2 mean: 110.2 cm/sec RVSP(TR): 49.3 mmHg Ao V2 VTI: 34.5 cm Left Ventricle The left ventricle is normal in size. There is normal left ventricular wall thickness. Left ventricular systolic function is normal. Ejection Fraction = 55-60%. Septal dyskinesis consisten with pressure and volume overload of the right ventricle. Right Ventricle There is a pacemaker lead in the right ventricle. The right ventricle is moderate to severely dilated. Atria The left atrial size is normal. The right atrium is severely dilated. The interatrial septum is intact with no evidence for an atrial septal defect. The atrial septum is aneurysmal. Mitral Valve The mitral valve is normal in structure and function. There is no evidence of mitral valve prolapse. There is no mitral valve stenosis. There is trace mitral regurgitation. Tricuspid Valve Normal tricuspid valve. There is moderate to severe tricuspid regurgitation. Right ventricular systolic pressure is 50mmHg. There is Doppler evidence for mild pulmonary hypertension. Aortic Valve The aortic valve is trileaflet. The aortic valve opens well. AV moderate calcification. There is no aortic stenosis. There is no aortic insufficiency. Pulmonic Valve The pulmonic valve is normal in structure and function. There is no pulmonic valvular regurgitation. Great Vessels The aortic root is normal size. Pericardium/Pleural There is no pericardial effusion. Conclusion A complete two-dimensional transthoracic echocardiogram was performed (2D, M-mode, Doppler and color flow Doppler). There is no evidence of a mass or vegetation. This does not rule out endocarditis. Left ventricular systolic function is normal. Ejection Fraction = 55-60%. The right ventricle is moderate to severely dilated. The right atrium is severely dilated. The interatrial septum is intact with no evidence for an atrial septal defect. The atrial septum is aneurysmal. There is trace mitral regurgitation. There is moderate to severe tricuspid regurgitation. Right ventricular systolic pressure is 50mmHg. There is Doppler evidence for mild pulmonary hypertension. AV moderate calcification. Septal dyskinesis consisten with pressure and volume overload of the right ventricle. Final Reading Physician: Luis F Gtz signed on 04/11/2017 03:11 PM Ordering Physician: Daryl Gonsales Performed By: Britt White RDCS
[2017-04-11] MEDS: IPRATROPIUM HFA INHALER IH PRN (15:48)
[2017-04-11] MEDS: LORazepam 0.5 MG TAB PO PRN ×2 (17:32→23:52)
[2017-04-11] MEDS: COLCHICINE 0.6 MG CAP/TAB PO SCH (20:52)
[2017-04-11] MEDS: OMEGA-3 FATTY ACIDS 1,000 MG CAP PO SCH (20:52)
[2017-04-11] MEDS: ATORVASTATIN CALCIUM 20 MG TAB PO SCH (20:52)
[2017-04-11] MEDS: APIXABAN 5 MG TAB PO SCH (20:53)
[2017-04-11] MEDS: MULTIVITAMINS 1 EACH TAB PO SCH (20:53)
[2017-04-11] MEDS: SOTALOL HCL 80 MG TAB PO SCH (20:53)
[2017-04-11] MEDS: ASPIRIN 81 MG CHEWABLE TAB PO SCH (20:53)
[2017-04-11] MEDS: LISINOPRIL 2.5 MG TAB PO SCH (20:53)
[2017-04-11] MEDS: CYANO/VITAMIN B12 1000 MCG TAB PO SCH (20:53)
[2017-04-11] MEDS ORDERED: NON-FORMULARY NEW DRUG (Sotalol Hcl [Sotalol] 120 MG) PO SCH (21:00)
[2017-04-12] MEDS: oxyCODONE IR 5 MG TAB PO PRN ×4 (00:41→14:17)
[2017-04-12] MEDS: PIPERACILLIN/TAZO 3.375 GM/DEX 50 ML IV SCH ×2 (00:42→05:21)
[2017-04-12 05:17] LABS: % IMMATURE GRANULYOCYTES 1.2 % (0.0-1.1); ABSOLUTE IMMATURE GRANULOCYTES 0.25 10^3/uL (0.00-0.10); ADD DIFF? NO; ADD MORPH? NO; ADD SCAN? NO; ATYPICAL LYMPHOCYTE FLAG 10 (0-99); FRAGMENT RBC FLAG 0 (0-99); HEMATOCRIT 35.3 % (40.0-51.0); HEMOGLOBIN 11.8 g/dL (13.7-17.5); LEFT SHIFT FLG 20 (0-99); LIPEMIA HEMOLYSIS FLAG 80 (0-99); MEAN CELL HEMOGLOBIN CONCENTR. 33.4 g/dL (32.4-36.7); MEAN CELL VOLUME 92.7 fL (81.5-99.8); MEAN PLATELET VOLUME 10.4 fL (8.7-11.7); PLATELET CLUMPS FLAG 20 (0-99); PLATELET COUNT 444 10^3/uL (150-400); RED BLOOD CELL COUNT 3.81 10^6/uL (4.40-6.38); RED CELL DISTRIBUTION WIDTH 13.5 % (11.5-15.2)
[2017-04-12 05:38] LABS: ALANINE AMINOTRANSFERASE 33 IU/L (21-72); ALBUMIN 2.9 g/dL (3.5-5.0); ALKALINE PHOSPHATASE 101 IU/L (38-126); ANION GAP 13 mEq/L (8-16); ASPARTATE AMINOTRANSFERASE 23 IU/L (17-59); BILIRUBIN,TOTAL 0.6 mg/dL (0.1-1.4); BILIRUBIN-CONJUGATED 0.5 mg/dL (0.0-0.5); BILIRUBIN-UNCONJUGATED 0.1 mg/dL (0.0-1.1); CALCIUM 8.1 mg/dL (8.5-10.4); CARBON DIOXIDE 25 mEq/l (22-31); CHLORIDE 98 mEq/L (97-110); CREATININE 0.8 mg/dL (0.7-1.3); GLOMERULAR FILTRATION RATE > 60; GLUCOSE 92 mg/dL (70-100); POTASSIUM 4.7 mEq/L (3.5-5.2); SODIUM 136 mEq/L (134-144); TOTAL PROTEIN 5.6 g/dL (6.3-8.2)
[2017-04-12 05:51] LABS: C-REACTIVE PROTEIN 196.8 mg/L (<10.0)
[2017-04-12] MEDS ORDERED: BUPIVACAINE/EPI 0.5% 30 ML SDV ONE (08:43)
[2017-04-12] MEDS ORDERED: HYDROGEN PEROXIDE 236 ML BOTTLE TP ONE (08:43)
[2017-04-12] MEDS ORDERED: METHYLENE BLUE 0.5% 50 MG/10 ML AMP ONE (08:44)
[2017-04-12] MEDS ORDERED: CALCIUM CITRATE 400 MG PO SCH (09:00)
--- NOTE | 2017-04-12 09:34 | PCMIDPN ---
Assessment/Plan: # Perirectal abscess and Lung abscess LLL - unclear unifying diagnosis. culture from outside hospital showed E coli and Streptococcus anginosus -- very SOB, notified hospitalists ; will check chest x-ray. exam consistent with emphysema. BP & pulse are stable --transgluteal IR drainage perirectal abscess w cx today, discussed with Dr. [facility] (Reviewed with patient at bedside as well) --narrow antibiotic therapy as patient without longstanding antibiotic exposure and E coli and strep on outside cultures. DC Zosyn and start ceftriaxone metronidazole. # Leukocytosis : Increasing WBC likely due to lack of drainage of perirectal abscess. Also could consider evolving effusion associated with left lower lobe lung abscess -- obtain chest x-ray -- IR drainage of perirectal abscess as above medications Zosyn/vancomycin x1 day microbiology 04/11/2017 blood cultures 2 sets: No growth today Subjective: patient reports left-sided pleuritic chest pain and shortness of breath. No perirectal pain Objective: Vital Signs Temp Pulse Resp BP Pulse Ox 37.4 C 69 14 110/50 L 90 L 04/12/17 07:42 04/12/17 07:42 04/12/17 07:42 04/12/17 07:42 04/12/17 07:42 Laboratory Results 04/12/17 03:50 04/12/17 03:50 04/11/17 04/12/17 04/13/17 05:59 05:59 05:59 Intake Total 1330 Output Total 650 Balance 680 C-Reactive Protein 196.8 mg/L (<10.0) H 04/12/17 03:50 - Physical Exam General Appearance: alert, apparent distress, thin EENT: pale conjunctiva, other ( fair dentition) Respiratory: accessory muscle use, other ( crackles left base, otherwise decreased breath sounds throughout), No wheezing Neck: supple Cardiac/Chest: regular rate, rhythm Extremities: No pedal edema Abdomen: normal bowel sounds, non-tender, soft, No distended Skin: pallor, No rash Neuro/Psych: alert, normal mood/affect, oriented x 3 - Time Spent With Patient Time Spent with Patient: greater than 35 minutes (care coordinated with Dr. Nuñez & Dr. Bishop) Time Spent with Patient: Greater than 35 minutes spent on this patients care, greater than 50% of time spent counseling, educating, and coordinating care regarding the above mentioned plan. ICD10 Worksheet Patient Problems: Problems Problem Status Onset Paracolic abscess Acute Pneumonia Acute Abdominal pain Acute Acute respiratory failure with hypoxia Acute COPD with acute exacerbation Acute Chronic chest pain Acute ICD (implantable cardioverter-defibrillator) in place Acute ICD (implantable cardioverter-defibrillator), dual, in situ Acute Mass of cecum Acute Pericarditis Acute Small bowel obstruction Acute
[2017-04-12] MEDS ORDERED: KETOROLAC 30 MG/1 ML SDV IVP ONE (09:39)
[2017-04-12] MEDS: cefTRIAXone 2 GM in D5W 50 ML IV SCH (10:08)
[2017-04-12] MEDS ORDERED: LR 1,000 ML IV ONE (10:10)
[2017-04-12] MEDS ORDERED: ALBUTEROL 3 ML DEYVIAL ONE (10:56)
[2017-04-12] MEDS ORDERED: ALBUTEROL 3 ML DEYVIAL IH PRN (11:09)
--- NOTE | 2017-04-12 11:10 | SOAPPROG ---
SOAP Progress Note Assessment/Plan: Assessment: Pneumonia, persistent perirectal abscess. D/w Dr. Bonner, who feels that transgluteal drainage may not be adequate. Discussed risks/benefits of repeat operative drainage with patient. Plan on operative I&D. Plan: 04/12/17 11:06 Subjective: Patient denies rectal/back pain. Cont CP, slight SOB. Objective: Vital Signs Temp Pulse Resp BP Pulse Ox 37.6 C 70 18 110/62 92 04/12/17 10:54 04/12/17 10:54 04/12/17 10:54 04/12/17 10:54 04/12/17 10:54 Laboratory Results 04/12/17 03:50 04/12/17 03:50 04/11/17 04/12/17 04/13/17 05:59 05:59 05:59 Intake Total 1330 Output Total 650 Balance 680 PT 16.1 SEC (12.0-15.0) H 04/11/17 04:19 INR 1.29 (0.83-1.16) H 04/11/17 04:19 Alert NAD Abd soft, NTTP ICD10 Worksheet Patient Problems: Problems Problem Status Onset Paracolic abscess Acute Pneumonia Acute Abdominal pain Acute Acute respiratory failure with hypoxia Acute COPD with acute exacerbation Acute Chronic chest pain Acute ICD (implantable cardioverter-defibrillator) in place Acute ICD (implantable cardioverter-defibrillator), dual, in situ Acute Mass of cecum Acute Pericarditis Acute Small bowel obstruction Acute
[2017-04-12] MEDS: IPRATROPIUM/ALBUTEROL 3 ML DEYVIAL IH SCH ×3 (11:12→23:07)
[2017-04-12] MEDS ORDERED: fentaNYL 100 MCG/2 ML INJ ONE (11:24)
[2017-04-12] MEDS ORDERED: PROPOFOL 200 MG/20 ML VIAL ONE (11:24)
[2017-04-12] MEDS ORDERED: epHEDrine SULFATE 10 MG/ML SYR ONE ×2 (11:35)
--- NOTE | 2017-04-12 12:05 | POSTOPPROG ---
Post Op Note Date of Operation: 04/12/17 Surgeon: Guy Sherman Anesthesiologist: Dr. Gandara Anesthesia: LMA Pre-op Diagnosis: Perirectal abscess Post-op Diagnosis: same Procedure: I&D Findings: Minimal residual purulence Inf/Abcess present in the surg proc area at time of surgery?: Yes Depth: Deep Incisional (Fascial) EBL: Minimal Drains: Other
--- NOTE | 2017-04-12 12:09 | PDANEPAE ---
ANE Past Medical History - Cardiovascular History Hx Hypertension: Yes Hx Arrhythmias: Yes Hx Chest Pain: No Hx Coronary Artery / Peripheral Vascular Disease: Yes Hx CHF / Valvular Disease: No Hx Palpitations: No Cardiovascular History Comment: PERICARDIAL EFFUSION 06/2015. PERICARDITIS. A- FIB. VT - Pulmonary History Hx COPD: No Hx Asthma/Reactive Airway Disease: Yes Hx Recent Upper Respiratory Infection: No Hx Oxygen in Use at Home: No Hx Sleep Apnea: Yes Sleep Apnea Screening Result - Last Documented: Positive Pulmonary History Comment: [facility] HS OXYGEN. BRONCHITIS 05/2015 - Neurologic History Hx Cerebrovascular Accident: No Hx Seizures: No Hx Dementia: No - Endocrine History Hx Diabetes: No Hypothyroid: No Hyperthyroid: No Obesity: no - Renal History Hx Renal Disorders: No - Liver History Hx Hepatic Disorders: No - Neurological & Psychiatric Hx Hx Neurological and Psychiatric Disorders: Yes Neurological / Psychiatric History Comment: ANXIETY - Cancer History Hx Cancer: No - Congenital Disorder History Hx Congenital Disorders: No - GI History Hx Gastrointestinal Disorders: Yes Gastrointestinal History Comment: UPPER GI BLEED 10/2015. SM BOWEL OBSTRUCTION RESOLVED - Chronic Pain History Chronic Pain: No - Surgical History Prior Surgeries: DENTAL EXT 08/2015 ANE Review of Systems - Pacemaker Pacemaker Caddie: [employer] Pacemaker Model: AICD Date Pacemaker Last Checked: 07/2015 ANE Patient History - Allergies Allergies/Adverse Reactions: No Known Allergies Allergy (Unverified 04/11/17 03:53) - Home Medications Home Medications: Albuterol [Proventil Inhaler HFA (*)] 2 puffs IH BID PRN 04/05/15 [Last Taken ] Apixaban [Eliquis] 5 mg PO BID 04/24/15 [Last Taken 04/10/17 20:00] Aspirin [Aspirin 81mg (*)] 81 mg PO HS 04/24/15 [Last Taken 04/10/17] Herbals/Supplements -Info Only 1 each PO DAILY 04/24/15 [Last Taken 10/20/15] Ipratropium [Atrovent Hfa (*)] 2 puffs IH Q6 PRN 05/28/15 [Last Taken 10/20/15] Sotalol HCl [Sotalol] 120 mg PO BID 05/28/15 [Last Taken 04/10/17 21:00] Calcium Citrate [Citracal] 400 mg PO DAILY 06/04/15 [Last Taken 04/10/17] Cholecalciferol Vit D3 [Vitamin D3 2000 units] 4,000 units PO DAILY 06/04/15 [ Last Taken 04/10/17] Cyanocobalamin [Vitamin B12 (*)] 2,000 mcg PO HS 06/04/15 [Last Taken 04/10/17] Multivitamins [Multivitamin (*)] 1 each PO HS 06/18/15 [Last Taken 04/10/17] Ascorbic Acid [Vitamin C 500 mg (*)] 1,000 mg PO DAILY 04/11/17 [Last Taken 03/20] Atorvastatin Calcium [Lipitor 20 mg (*)] 20 mg PO HS 04/11/17 [Last Taken ] Colchicine [Colchicine (*)] 0.6 mg PO HS 04/11/17 [Last Taken 04/10/17] Glucosamine/Chondroitin [Glucosamine/Chondroitin (*)] 1 each PO DAILY 04/11/17 [ Last Taken 04/10/17] Lisinopril [Zestril 2.5 mg (*)] 2.5 mg PO HS 04/11/17 [Last Taken 04/10/17] [place]-3 Fatty Acids [Fish Oil 1000 mg (*)] 2,000 mg PO BID 04/11/17 [Last Taken 04/10/17 21:00] levOFLOXACIN [levAQUIN (*)] 750 mg PO DAILY 04/11/17 [Last Taken Unknown] metroNIDAZOLE [Flagyl 500 mg (*)] 500 mg PO TID 04/11/17 [Last Taken 04/10/17 20 :00] oxyCODONE/APAP 5/325 [Percocet 5/325 (*)] 1 - 2 tab PO Q6H PRN 04/11/17 [Last Taken 04/10/17 20:00] - NPO status NPO Since - Liquids (Date): 04/12/17 NPO Since - Liquids (Time): 00:00 NPO Since - Solids (Date): 04/12/17 NPO Since - Solids (Time): 00:00 - Smoking Hx Smoking Status: Former smoker - Alcohol Use Alcohol Use: None ANE Labs/Vital Signs - Labs Result Diagrams: 04/12/17 03:50 04/12/17 03:50 - Vital Signs Blood Pressure: 110/62 Heart Rate: 70 Respiratory Rate: 18 O2 Sat (%): 92 Height: 182.88 cm Weight: 72.5 kg ANE Physical Exam - Airway Neck exam: FROM Mallampati Score: Class 1 Mouth exam: poor dentition - Pulmonary Pulmonary: reduced air movement, expiratory wheeze, inspiratory crackles, respiratory distress - Cardiovascular Cardiovascular: regular rate and rhythym - ASA Status ASA Status: IV ANE Anesthesia Plan Anesthesia Plan: GA w LMA
[2017-04-12] MEDS ORDERED: ONDANSETRON 4 MG/2 ML VIAL IVP PRN (12:11)
[2017-04-12] MEDS ORDERED: LR 500 ML IV PRN (12:11)
[2017-04-12] MEDS ORDERED: fentaNYL 100 MCG/2 ML INJ IVP PRN (12:11)
[2017-04-12] MEDS ORDERED: NALOXONE HCL 0.4 MG/ML INJ IVP PRN (12:11)
[2017-04-12] MEDS ORDERED: PROMETHAZINE HCL 25 MG/ML INJ IVP PRN (12:11)
--- NOTE | 2017-04-12 12:13 | POSTANESTH ---
Post Anesthetic Evaluation Cardiovascular Status: Similar to Pre-Op Cond Respiratory Status: Similar to Pre-op Cond. Level of Consciousness/Mental Status: Mildly Sleepy, Arousable Pain Control: Adequate, Prn Tx Ordered Nausea/Vomiting Control: Adequate, Prn Tx Ordered Complications Possibly Related to Anesthesia: None Noted (Magnet used during procedure, ICD check postop will be performed by company rep.)
--- NOTE | 2017-04-12 12:55 | GOP ---
[f rep st] OPERATIVE REPORT DATE OF OPERATION: 04/12/2017 SURGEON: Gualberto Sherman MD ANESTHESIA: Laryngeal mask anesthesia. ANESTHESIOLOGIST: Dr. Gandara. PREOPERATIVE DIAGNOSIS: Perirectal abscess. POSTOPERATIVE DIAGNOSIS: Perirectal abscess. PROCEDURE PERFORMED: Incision and drainage of perirectal abscess. FINDINGS: Patient had minimal purulence and some old blood. Thick-walled abscess cavity remained. No other lesions were identified. ESTIMATED BLOOD LOSS: 5 cc. INDICATIONS: A 61-year-old male with history of perirectal abscess. This was drained [address] scan suggested possible residual fluid. After discussion with infectious disease, it was felt that drainage would be most appropriate. Risks and benefits of the procedure were discussed with th e patient, questions were answered. He wished to proceed. DESCRIPTION OF PROCEDURE: Patient in supine position initially. After induction of adequate laryng eal mask anesthesia, the patient was moved to modified lithotomy position. He was then prepped and draped in standard surgical fashion. Digital rectal exam was performed and the anus was serially di lated. Retraction was placed and the area was inspected. The incision remained patent from the karen or drainage. There was a small amount of purulence and some old blood in this area. This was thoro ughly evacuated. The cavity was thoroughly irrigated. Of note, the residual purulence was sent for culture and sensitivities. After irrigation of the cavity, the area was inspected. Good hemostasi s was noted. It was probed and no further loculations or cavities were noted. A 22 Malecot cathete r was placed in the area. This was sutured to the skin on the upper thigh using 2-0 nylon in interr upted fashion. The area was then dressed and the patient returned to supine position and extubated. He was then taken to PACU in stable condition. COMPLICATIONS: None. DRAINS: 1 Malecot catheter in the abscess site. /[id number]/MODL
[2017-04-12] MEDS: OMEGA-3 FATTY ACIDS 1,000 MG CAP PO SCH ×2 (14:16→22:03)
[2017-04-12] MEDS: CALCIUM CARBONATE 500 MG TAB PO SCH (14:17)
[2017-04-12] MEDS: CHOLECALCIFEROL VIT D3 1,000 UNITS TAB PO SCH (14:17)
[2017-04-12] MEDS: LORazepam 0.5 MG TAB PO PRN (14:17)
[2017-04-12] MEDS: SOTALOL HCL 80 MG TAB PO SCH ×2 (14:18→23:30)
[2017-04-12] MEDS: APIXABAN 5 MG TAB PO SCH ×2 (14:19→22:04)
[2017-04-12] MEDS: ASCORBIC ACID 500 MG TAB PO SCH (14:19)
--- NOTE | 2017-04-12 14:21 | HOSPPROG ---
Hospitalist Progress Note Assessment/Plan: 61-year-old man with a recent diagnosis for perirectal abscess. It was drained 2 days ago at a [facility] and started on antibiotics Levaquin and Flagyl. The patient did not start the Levaquin but did start the Flagyl postop. He comes in for increasing left-sided chest pain and was diagnosed with a left lower lobe pneumonia with microabscesses. # Acute left lower lobe pneumonia with microabscesses noted on CT chest ( personally reviewed and interpreted) left lower lobe pneumonia with microabscesses. Patient with intense persistent pleuritic pain - visibly uncomfortable on my examination this morning Unclear if pneumonia seated from perirectal abscess no outpatient cultures obtained - blood cultures 04/11 NGTD Oxygen saturations 99% on 2 L - Continue current antibiotics to treat for anaerobes - checked chest x-ray today to verify no new pleural effusion - trial of single dose Toradol as narcotic pain medications have been assisting very little with pain - continue monitoring blood cultures # Perirectal abscess, drain 2 days prior to admission at the [facility] by Dr. Sherman. Not entirely drained by initial procedure - NPO for OR drainage today - Continue p.r.n. IV pain medication # acute leukocytosis- WBC 17-> 21 overnight- suspect multifactorial from pneumonia and perirectal abscess - continue current antibiotics # history of ventricular arrhythmias status post AICD placement - continue sotalol. # atrial fibrillation - currently rate controlled - continue Eliquis and sotalol # COPD- adding scheduled duo nebs today # Anxiety, severe. will add prn ativan. # diet NPO for OR # prophylaxis Eliquis # disposition greater than 2 midnights as patient requiring IV antibiotics for micro abscesses of the lung and repeat perirectal drainage today in the OR I have discussed the case with Infectious Disease- patient has a lot of pleuritic pain - will check chest x-ray to rule out new pleural effusion Subjective: Marked pain of left chest with breathing Objective: Vital Signs Temp Pulse Resp BP Pulse Ox 36.1 C 70 17 96/55 L 96 04/12/17 12:23 04/12/17 12:09 04/12/17 12:46 04/12/17 12:46 04/12/17 12:46 Laboratory Results 04/12/17 03:50 04/12/17 03:50 04/11/17 04/12/17 04/13/17 05:59 05:59 05:59 Intake Total 1330 500 Output Total 650 Balance 680 500 PT 16.1 SEC (12.0-15.0) H 04/11/17 04:19 INR 1.29 (0.83-1.16) H 04/11/17 04:19 - Physical Exam Constitutional: appears nourished Eyes: anicteric sclera Ears, Nose, Mouth, Throat: dry mucous membranes Cardiovascular: regular rate and rhythym Respiratory: inspiratory crackles Gastrointestinal: normoactive bowel sounds Genitourinary: no bladder fullness Skin: warm, normal color Musculoskeletal: No asymmetric calves Neurologic: AAOx3 Psychiatric: anxious, flat affect Lymph, Heme, Immunologic: no cervical LAD ICD10 Worksheet Patient Problems: Problems Problem Status Onset Paracolic abscess Acute Pneumonia Acute Abdominal pain Acute Acute respiratory failure with hypoxia Acute COPD with acute exacerbation Acute Chronic chest pain Acute ICD (implantable cardioverter-defibrillator) in place Acute ICD (implantable cardioverter-defibrillator), dual, in situ Acute Mass of cecum Acute Pericarditis Acute Small bowel obstruction Acute
[2017-04-12] MEDS: KETOROLAC 15 MG/1 ML SDV IVP SCH (18:31)
[2017-04-12] MEDS: COLCHICINE 0.6 MG CAP/TAB PO SCH (22:03)
[2017-04-12] MEDS: ATORVASTATIN CALCIUM 20 MG TAB PO SCH (22:04)
[2017-04-12] MEDS: CYANO/VITAMIN B12 1000 MCG TAB PO SCH (22:04)
[2017-04-12] MEDS: ASPIRIN 81 MG CHEWABLE TAB PO SCH (22:04)
[2017-04-12] MEDS: MULTIVITAMINS 1 EACH TAB PO SCH (22:04)
[2017-04-12] MEDS: LISINOPRIL 2.5 MG TAB PO SCH (23:30)
[2017-04-13] MEDS: KETOROLAC 15 MG/1 ML SDV IVP SCH ×3 (01:03→13:55)
[2017-04-13 05:10] LABS: HEMATOCRIT 33.1 % (40.0-51.0); HEMOGLOBIN 11.2 g/dL (13.7-17.5); LIPEMIA HEMOLYSIS FLAG 90 (0-99); MEAN CELL HEMOGLOBIN 31.5 pg (27.9-34.1); MEAN CELL HEMOGLOBIN CONCENTR. 33.8 g/dL (32.4-36.7); PLATELET COUNT 402 10^3/uL (150-400); RED BLOOD CELL COUNT 3.56 10^6/uL (4.40-6.38); RED CELL DISTRIBUTION WIDTH 13.2 % (11.5-15.2)
[2017-04-13] MEDS: IPRATROPIUM/ALBUTEROL 3 ML DEYVIAL IH SCH ×4 (05:31→23:00)
[2017-04-13] MEDS: OMEGA-3 FATTY ACIDS 1,000 MG CAP PO SCH ×2 (08:21→19:56)
[2017-04-13] MEDS: CALCIUM CARBONATE 500 MG TAB PO SCH (08:21)
[2017-04-13] MEDS: ASCORBIC ACID 500 MG TAB PO SCH (08:21)
[2017-04-13] MEDS: cefTRIAXone 2 GM in D5W 50 ML IV SCH (08:21)
[2017-04-13] MEDS: CHOLECALCIFEROL VIT D3 1,000 UNITS TAB PO SCH (08:21)
[2017-04-13] MEDS: oxyCODONE IR 5 MG TAB PO PRN ×4 (08:21→20:56)
[2017-04-13] MEDS: APIXABAN 5 MG TAB PO SCH (08:22)
[2017-04-13] MEDS: SOTALOL HCL 80 MG TAB PO SCH ×2 (09:05→19:59)
--- NOTE | 2017-04-13 09:09 | SOAPPROG ---
SOAP Progress Note Assessment/Plan: Assessment: Cont CP, may require drainage of pleural fluid. Cont cath for perirectal abscess and await cultures. Plan: 04/12/17 11:06 04/13/17 09:07 Subjective: Patient with cont L chest pain. Denies abd/back pain. Manuela po, no N/V. Objective: Vital Signs Temp Pulse Resp BP Pulse Ox 36.9 C 61 18 94/51 L 97 04/13/17 07:50 04/13/17 07:50 04/13/17 07:50 04/13/17 07:50 04/13/17 07:50 Microbiology 04/12/17 11:42 Gram Stain - Final Buttock - Eswab Laboratory Results 04/13/17 03:43 04/12/17 03:50 04/12/17 04/13/17 04/14/17 05:59 05:59 05:59 Intake Total 1330 1520 Output Total 650 5 Balance 680 1515 PT 16.1 SEC (12.0-15.0) H 04/11/17 04:19 INR 1.29 (0.83-1.16) H 04/11/17 04:19 Alert, NAD Abd soft, NTTP Cath with thin blood, no pus noted. ICD10 Worksheet Patient Problems: Problems Problem Status Onset Paracolic abscess Acute Pneumonia Acute Abdominal pain Acute Acute respiratory failure with hypoxia Acute COPD with acute exacerbation Acute Chronic chest pain Acute ICD (implantable cardioverter-defibrillator) in place Acute ICD (implantable cardioverter-defibrillator), dual, in situ Acute Mass of cecum Acute Pericarditis Acute Small bowel obstruction Acute
[2017-04-13] MEDS ORDERED: NS 500 ML IV ONE (09:18)
[2017-04-13] MEDS ORDERED: BISACODYL 10 MG SUPP PR PRN (09:19)
[2017-04-13] MEDS ORDERED: LACTULOSE 20 GM/30 ML UDCUP PO PRN (09:19)
[2017-04-13] MEDS ORDERED: MAGNESIUM HYDROXIDE 30 ML UDCUP PO PRN (09:19)
[2017-04-13] MEDS: POLYETHYLENE GLYCOL 3350 17 GM PKT PO PRN (10:11)
--- NOTE | 2017-04-13 11:18 | PCMIDPN ---
Assessment/Plan: Assessment: Pelvic abscess off the sigmoid colon. E coli and Streptococcus anginosus in initial culture from 1st drainage at a [facility]. Polymicrobial tyesha from our culture. Patient is continuing on ceftriaxone and Flagyl. No changes at present for this problem. Left lower lobe complex pneumonia with complicated effusion. Does not appear to be accessible to drainage by interventional Radiology. Discussed with General surgery about pursuing VATS. Do not think that this is directly related to the abscess off the sigmoid colon. Plan: 1. Continue both ceftriaxone and Flagyl. 2. Obtain General surgery opinion about the possibility of VATS. Subjective: Patient still admits to discomfort along the bottom of his left rib cage. This increases with deep breathing. No fevers or chills. Tolerating antibiotics without issue. Objective: Ceftriaxone # 2 metronidazole # 1 Vital Signs Temp Pulse Resp BP Pulse Ox 36.9 C 70 18 91/48 L 94 04/13/17 11:09 04/13/17 11:09 04/13/17 07:50 04/13/17 11:09 04/13/17 11:09 Microbiology 04/12/17 11:42 Gram Stain - Final Buttock - Eswab Laboratory Results 04/13/17 03:43 04/12/17 03:50 04/12/17 04/13/17 04/14/17 05:59 05:59 05:59 Intake Total 1330 1520 550 Output Total 650 5 Balance 680 1515 550 C-Reactive Protein 196.8 mg/L (<10.0) H 04/12/17 03:50 - Physical Exam General Appearance: WD/WN, alert, no apparent distress, thin, non-toxic Respiratory: normal breath sounds, crackles, No lungs clear Cardiac/Chest: regular rate, rhythm, No tachycardia Skin: normal color, warm/dry, No rash Neuro/Psych: alert, normal mood/affect, oriented x 3 ICD10 Worksheet Patient Problems: Problems Problem Status Onset Paracolic abscess Acute Pneumonia Acute Abdominal pain Acute Acute respiratory failure with hypoxia Acute COPD with acute exacerbation Acute Chronic chest pain Acute ICD (implantable cardioverter-defibrillator) in place Acute ICD (implantable cardioverter-defibrillator), dual, in situ Acute Mass of cecum Acute Pericarditis Acute Small bowel obstruction Acute
--- NOTE | 2017-04-13 13:46 | HOSPPROG ---
Hospitalist Progress Note Assessment/Plan: 61-year-old man with a recent diagnosis for perirectal abscess. It was drained 2 days ago at a [facility] and started on antibiotics Levaquin and Flagyl. The patient did not start the Levaquin but did start the Flagyl postop. He comes in for increasing left-sided chest pain and was diagnosed with a left lower lobe pneumonia with microabscesses. # Acute left lower lobe pneumonia with microabscesses noted on CT chest on admission Patient with intense persistent pleuritic pain - remains very uncomfortable on examination CXR (personally reviewed and interpreted) new left sided pleural effusion- blood cultures 04/11 NGTD Oxygen saturations 98% on 3 L - Continue current antibiotics to treat for anaerobes - consult IR for thoracentesis - dc Toradol - did not meaningfully assist with pain control overnight - continue monitoring blood cultures # Perirectal abscess, drain 2 days prior to admission at the [facility] by Dr. Sherman. Not entirely drained by initial procedure s/p OR drainage and drain 04/12 - denies pain this am - Continue p.r.n. IV pain medication # acute leukocytosis- WBC 17-> 21 this am- suspect multifactorial from pneumonia and perirectal abscess - continue current antibiotics - work towards pleural fluid drainage and evaluation # history of ventricular arrhythmias status post AICD placement - continue sotalol. # atrial fibrillation - currently rate controlled - continue Eliquis and sotalol # COPD- adding scheduled duo nebs today # Anxiety, severe. cont prn ativan. # diet tolerating regular # prophylaxis Eliquis # disposition greater than 2 midnights as patient requiring IV antibiotics for micro abscesses of the lung and repeat perirectal drainage and management of new pleural effusion I have discussed the case with Infectious Disease- important we drain new pleural effusion and evaluate to rule out empyema and perform micro eval Subjective: left chest pain persists Objective: Vital Signs Temp Pulse Resp BP Pulse Ox 36.9 C 68 16 91/48 L 98 04/13/17 11:09 04/13/17 11:41 04/13/17 11:41 04/13/17 11:09 04/13/17 11:41 Microbiology 04/12/17 11:42 Gram Stain - Final Buttock - Eswab Laboratory Results 04/13/17 03:43 04/12/17 03:50 04/12/17 04/13/17 04/14/17 05:59 05:59 05:59 Intake Total 1330 1520 550 Output Total 650 5 Balance 680 1515 550 PT 16.1 SEC (12.0-15.0) H 04/11/17 04:19 INR 1.29 (0.83-1.16) H 04/11/17 04:19 - Physical Exam Constitutional: appears nourished Eyes: anicteric sclera Ears, Nose, Mouth, Throat: moist mucous membranes Cardiovascular: regular rate and rhythym Respiratory: reduced air movement, inspiratory crackles Gastrointestinal: normoactive bowel sounds Genitourinary: no bladder fullness Skin: warm, normal color Musculoskeletal: No asymmetric calves Neurologic: AAOx3 Psychiatric: interacting appropriately Lymph, Heme, Immunologic: no cervical LAD ICD10 Worksheet Patient Problems: Problems Problem Status Onset Paracolic abscess Acute Pneumonia Acute Abdominal pain Acute Acute respiratory failure with hypoxia Acute COPD with acute exacerbation Acute Chronic chest pain Acute ICD (implantable cardioverter-defibrillator) in place Acute ICD (implantable cardioverter-defibrillator), dual, in situ Acute Mass of cecum Acute Pericarditis Acute Small bowel obstruction Acute
[2017-04-13] MEDS: ATORVASTATIN CALCIUM 20 MG TAB PO SCH (19:55)
[2017-04-13] MEDS: ASPIRIN 81 MG CHEWABLE TAB PO SCH (19:55)
[2017-04-13] MEDS: CYANO/VITAMIN B12 1000 MCG TAB PO SCH (19:56)
[2017-04-13] MEDS: COLCHICINE 0.6 MG CAP/TAB PO SCH (19:58)
[2017-04-13] MEDS: MULTIVITAMINS 1 EACH TAB PO SCH (19:58)
[2017-04-13] MEDS: SENNOSIDES/DOCUSATE SODIUM TAB PO SCH (20:00)
--- NOTE | 2017-04-13 21:05 | GCON ---
[f rep st] CONSULTATION DATE OF CONSULTATION: 04/13/2017 REFERRING PHYSICIAN: Faith Nuñez MD CHIEF COMPLAINT: Abscesses in left chest. HISTORY OF PRESENT ILLNESS: The patient is a 61-year-old man, who was admitted to the hospital on A ugust 2016. Recently had a perirectal abscess drained by Dr. Sherman. He had worsening left-ruben ed chest wall pain and presented. He had a CT scan that showed microabscesses and was placed on ant ibiotics. He has continued to have pain, and his white count is still elevated. I was consulted to see if that is appropriate. An ultrasound was performed, which does not show good target through r adiology. PAST MEDICAL HISTORY: Includes ventricular arrhythmias, atrial fibrillation, cardiomyopathy, COPD. PAST SURGICAL HISTORY: AICD. FAMILY HISTORY: Significant for coronary artery disease. SOCIAL HISTORY: He is a previous smoker. He denies tobacco or illegal drug use. He is planning on moving on Monday. REVIEW OF SYSTEMS: 10-point review of systems negative except per HPI. PHYSICAL EXAMINATION: GENERAL: Pleasant, well-nourished man, sitting up in exam chair. HEENT: No rmocephalic. No gross hearing deficits. Mucous membranes moist. Pupils equal and round. No scler al icterus. LUNGS: Surprisingly clear to auscultation bilaterally. No increased work of breathing . CARDIAC: Regular rate with a systolic murmur. MUSCULOSKELETAL: Normal nails. NEUROLOGIC: Fritz sly intact. PSYCH: Mood and affect appropriate. SKIN: Warm and dry. RESULTS REVIEWED: I personally reviewed the results of his imaging exams and can see the multiple m icroabscesses in the left lower lobe. There does not appear to be a large fluid component. His [facility] te blood cell count of 21,000 today. IMPRESSION/PLAN: The patient is a 61-year-old man with microabscesses in his lung, and he still has pain with breathing. There is not a minimally invasive tube approach to drain this. We discussed video-assisted thoracoscopic surgery and that this is a fairly big surgery for such a small area, bu t he is also not improving. I described that he would have a chest tube postoperatively and would b e on oxygen postoperatively. I am unsure the length that he would need a chest tube or his hospital stay. I explained to his that he would not be able to move on Monday nor Monday. I describe d that he would possibly be in the hospital for several days and then at home would need to recupera te prior to helping move. During his interview, I learned that he is on Eliquis. This needs to be held prior to surgery. Surgery can be planned for this weekend. I have also discussed the case wit h Dr. Sherman, who was his previous surgeon and either one of us can facilitate the surgery over the weekend. /[id number]/MODL
[2017-04-13] MEDS: LORazepam 0.5 MG TAB PO PRN (23:58)
[2017-04-14] MEDS: IPRATROPIUM/ALBUTEROL 3 ML DEYVIAL IH SCH ×3 (05:22→17:52)
[2017-04-14 05:57] LABS: HEMATOCRIT 31.9 % (40.0-51.0); HEMOGLOBIN 10.9 g/dL (13.7-17.5); MEAN CELL HEMOGLOBIN 31.3 pg (27.9-34.1); MEAN CELL HEMOGLOBIN CONCENTR. 34.2 g/dL (32.4-36.7); MEAN CELL VOLUME 91.7 fL (81.5-99.8); RED BLOOD CELL COUNT 3.48 10^6/uL (4.40-6.38); RED CELL DISTRIBUTION WIDTH 13.6 % (11.5-15.2)
[2017-04-14 07:24] LABS: ANION GAP 10 mEq/L (8-16); CALCIUM 7.7 mg/dL (8.5-10.4); CARBON DIOXIDE 24 mEq/l (22-31); CHLORIDE 100 mEq/L (97-110); CREATININE 0.7 mg/dL (0.7-1.3); GLOMERULAR FILTRATION RATE > 60; GLUCOSE 103 mg/dL (70-100); POTASSIUM 4.4 mEq/L (3.5-5.2); SODIUM 134 mEq/L (134-144)
[2017-04-14] MEDS: SOTALOL HCL 80 MG TAB PO SCH ×2 (09:16→21:08)
[2017-04-14] MEDS: oxyCODONE IR 5 MG TAB PO PRN ×4 (09:16→21:07)
[2017-04-14] MEDS: OMEGA-3 FATTY ACIDS 1,000 MG CAP PO SCH ×2 (09:17→21:07)
[2017-04-14] MEDS: CALCIUM CARBONATE 500 MG TAB PO SCH (09:18)
[2017-04-14] MEDS: cefTRIAXone 2 GM in D5W 50 ML IV SCH (09:18)
[2017-04-14] MEDS: CHOLECALCIFEROL VIT D3 1,000 UNITS TAB PO SCH (09:18)
[2017-04-14] MEDS: SENNOSIDES/DOCUSATE SODIUM TAB PO SCH ×2 (09:19→21:07)
[2017-04-14] MEDS: ASCORBIC ACID 500 MG TAB PO SCH (09:19)
--- NOTE | 2017-04-14 09:50 | SOAPPROG ---
SOAP Progress Note Assessment/Plan: Assessment: Unable to drain L pleural abscesses per IR. Plan VATS 04/15 for drainage. Cont rectal cath for now. D/w patient, questions answered. Plan: 04/12/17 11:06 04/13/17 09:07 04/14/17 09:41 Subjective: Patient with cont L CP. Denies abd/back pain. Objective: Vital Signs Temp Pulse Resp BP Pulse Ox 37.0 C 70 18 104/57 L 94 04/14/17 08:00 04/14/17 08:00 04/14/17 08:00 04/14/17 08:00 04/14/17 08:00 Microbiology 04/12/17 11:42 Gram Stain - Final Buttock - Eswab Laboratory Results 04/14/17 03:50 04/14/17 03:50 04/13/17 04/14/17 04/15/17 05:59 05:59 05:59 Intake Total 1520 2640 Output Total 5 15 Balance 1515 2625 PT 16.1 SEC (12.0-15.0) H 04/11/17 04:19 INR 1.29 (0.83-1.16) H 04/11/17 04:19 Alert, NAD Abd soft, NTTP Drain with thin purulence, no blood. ICD10 Worksheet Patient Problems: Problems Problem Status Onset Paracolic abscess Acute Pneumonia Acute Abdominal pain Acute Acute respiratory failure with hypoxia Acute COPD with acute exacerbation Acute Chronic chest pain Acute ICD (implantable cardioverter-defibrillator) in place Acute ICD (implantable cardioverter-defibrillator), dual, in situ Acute Mass of cecum Acute Pericarditis Acute Small bowel obstruction Acute
--- NOTE | 2017-04-14 10:52 | PCMIDPN ---
Assessment/Plan: # Perirectal abscess and Lung abscess /empyema LLL - unclear unifying diagnosis. culture from outside hospital showed E coli and Streptococcus anginosus. s/p drain placement in perirectal abscess 04/12/2017. -- VATS 04/15/2017, delayed due to anticoagulation. -- continue ceftriaxone for coverage of Streptococcus and metronidazole for oral and GI anaerobes # Leukocytosis :Likely due to undrained left lower lobe empyema medications, antibiotics # 3 ceftriaxone 1 g IV daily Metronidazole 500 mg IV q.8h microbiology 04/11 blood cultures 2 sets: no growth today 04/12: perirectal abscess culture: Polymicrobial 04/14/17 10:53 Subjective: patient continues to complain of left-sided pleuritic chest pain Objective: Vital Signs Temp Pulse Resp BP Pulse Ox 37.0 C 70 16 104/57 L 92 04/14/17 08:00 04/14/17 10:08 04/14/17 10:08 04/14/17 08:00 04/14/17 10:08 Microbiology 04/12/17 11:42 Gram Stain - Final Buttock - Eswab Laboratory Results 04/14/17 03:50 04/14/17 03:50 04/13/17 04/14/17 04/15/17 05:59 05:59 05:59 Intake Total 1520 2640 Output Total 5 15 Balance 1515 2625 C-Reactive Protein 196.8 mg/L (<10.0) H 04/12/17 03:50 - Physical Exam General Appearance: alert, no apparent distress, thin EENT: other ( fair dentition) Respiratory: other ( decreased breath sounds in the left), No accessory muscle use, No wheezing Neck: supple Cardiac/Chest: regular rate, rhythm Extremities: No pedal edema Abdomen: non-tender, soft ICD10 Worksheet Patient Problems: Problems Problem Status Onset Paracolic abscess Acute Pneumonia Acute Abdominal pain Acute Acute respiratory failure with hypoxia Acute COPD with acute exacerbation Acute Chronic chest pain Acute ICD (implantable cardioverter-defibrillator) in place Acute ICD (implantable cardioverter-defibrillator), dual, in situ Acute Mass of cecum Acute Pericarditis Acute Small bowel obstruction Acute
[2017-04-14] MEDS: ACETAMINOPHEN 325 MG TAB PO PRN (12:26)
[2017-04-14] MEDS ORDERED: NS 500 ML IV ONE (15:05)
[2017-04-14] MEDS: NS 1,000 ML IV SCH ×2 (15:28→21:09)
--- NOTE | 2017-04-14 15:33 | HOSPPROG ---
Hospitalist Progress Note Assessment/Plan: 61-year-old man with a recent diagnosis for perirectal abscess. It was drained 2 days ago at a [facility] and started on antibiotics Levaquin and Flagyl. The patient did not start the Levaquin but did start the Flagyl postop. He comes in for increasing left-sided chest pain and was diagnosed with a left lower lobe pneumonia with microabscesses. # Acute left lower lobe pneumonia with microabscesses - noted on CT chest on admission Patient with intense persistent pleuritic pain - remains very uncomfortable breathing feels labored CXR (personally reviewed and interpreted) left sided pleural effusion- ultrasound by IR shows loculation blood cultures 04/11 NGTD Oxygen saturations 98% on 3 L - Continue current antibiotics to treat additionally for anaerobes - holding Eliquis planning for VATS 04/15/2017 - continue monitoring blood cultures # acute hypotension- systolic blood pressures in the 80s- may be combination of volume and cardiac medications - NS bolus now - NS maintenance overnight while NPO - hold parameters on sotalol # Perirectal abscess, drain 2 days prior to admission at the [facility] by Dr. Sherman. Not entirely drained by initial procedure s/p OR drainage and drain 04/12 - denies pain this am - Continue p.r.n. IV pain medication - suspect drain removal today # acute leukocytosis- WBC 17-> 19 this am- suspect multifactorial from pneumonia and perirectal abscess - continue current antibiotics - work towards pleural fluid drainage and evaluation # history of ventricular arrhythmias status post AICD placement - continue sotalol. # atrial fibrillation - currently rate controlled - continue Eliquis and sotalol # COPD- adding scheduled duo nebs today # Anxiety, severe. cont prn ativan. # diet tolerating regular # prophylaxis - holding Eliquis # disposition greater than 2 midnights as patient requiring IV antibiotics for micro abscesses of the lung and repeat perirectal drainage and management of new pleural effusion I have discussed the case with surgery- will plan for VATS tomorrow Subjective: Still with profound left-sided chest discomfort Objective: Vital Signs Temp Pulse Resp BP Pulse Ox 36.9 C 70 20 98/52 L 97 04/14/17 13:48 04/14/17 12:00 04/14/17 12:00 04/14/17 12:00 04/14/17 12:00 Microbiology 04/12/17 11:42 Gram Stain - Final Buttock - Eswab Laboratory Results 04/14/17 03:50 04/14/17 03:50 04/13/17 04/14/17 04/15/17 05:59 05:59 05:59 Intake Total 1520 2640 960 Output Total 5 15 Balance 1515 2625 960 PT 16.1 SEC (12.0-15.0) H 04/11/17 04:19 INR 1.29 (0.83-1.16) H 04/11/17 04:19 - Physical Exam Constitutional: appears nourished Eyes: anicteric sclera Ears, Nose, Mouth, Throat: moist mucous membranes Cardiovascular: regular rate and rhythym Respiratory: no respiratory distress, reduced air movement, inspiratory crackles Gastrointestinal: normoactive bowel sounds, soft, non-tender abdomen Genitourinary: no bladder fullness Skin: warm, normal color Musculoskeletal: No asymmetric calves Neurologic: AAOx3 Psychiatric: interacting appropriately Lymph, Heme, Immunologic: no cervical LAD ICD10 Worksheet Patient Problems: Problems Problem Status Onset Paracolic abscess Acute Pneumonia Acute Abdominal pain Acute Acute respiratory failure with hypoxia Acute COPD with acute exacerbation Acute Chronic chest pain Acute ICD (implantable cardioverter-defibrillator) in place Acute ICD (implantable cardioverter-defibrillator), dual, in situ Acute Mass of cecum Acute Pericarditis Acute Small bowel obstruction Acute
[2017-04-14] MEDS: COLCHICINE 0.6 MG CAP/TAB PO SCH (21:07)
[2017-04-14] MEDS: CYANO/VITAMIN B12 1000 MCG TAB PO SCH (21:07)
[2017-04-14] MEDS: ATORVASTATIN CALCIUM 20 MG TAB PO SCH (21:07)
[2017-04-14] MEDS: MULTIVITAMINS 1 EACH TAB PO SCH (21:07)
[2017-04-14] MEDS: ASPIRIN 81 MG CHEWABLE TAB PO SCH (21:07)
[2017-04-14] MEDS: IPRATROPIUM HFA INHALER IH PRN (21:48)
[2017-04-14] MEDS: LORazepam 0.5 MG TAB PO PRN (23:59)
[2017-04-15] MEDS: IPRATROPIUM/ALBUTEROL 3 ML DEYVIAL IH SCH ×5 (00:05→23:43)
[2017-04-15] MEDS ORDERED: BUPIVACAINE/EPI 0.5% 30 ML SDV ONE (07:58)
--- NOTE | 2017-04-15 08:10 | SOAPPROG ---
SOAP Progress Note Assessment/Plan: Assessment: Plan VATS decortication this AM. Risks/benefits reviewed, questions answered. Plan: 04/12/17 11:06 04/13/17 09:07 04/14/17 09:41 04/15/17 08:08 Subjective: No change in L CP. Objective: Vital Signs Temp Pulse Resp BP Pulse Ox 37.1 C 68 28 H 110/61 93 04/15/17 07:57 04/15/17 07:57 04/15/17 07:57 04/15/17 07:57 04/15/17 07:57 Microbiology 04/12/17 11:42 Gram Stain - Final Buttock - Eswab Laboratory Results 04/14/17 03:50 04/14/17 03:50 04/14/17 04/15/17 04/16/17 05:59 05:59 05:59 Intake Total 2640 1910 1200 Output Total 15 300 Balance 2625 1610 1200 PT 16.1 SEC (12.0-15.0) H 04/11/17 04:19 INR 1.29 (0.83-1.16) H 04/11/17 04:19 Alert, NAD BS decreased B bases abd soft Rectal tube out ICD10 Worksheet Patient Problems: Problems Problem Status Onset Paracolic abscess Acute Pneumonia Acute Abdominal pain Acute Acute respiratory failure with hypoxia Acute COPD with acute exacerbation Acute Chronic chest pain Acute ICD (implantable cardioverter-defibrillator) in place Acute ICD (implantable cardioverter-defibrillator), dual, in situ Acute Mass of cecum Acute Pericarditis Acute Small bowel obstruction Acute
--- NOTE | 2017-04-15 08:28 | PDANEPAE ---
ANE History of Present Illness 61 yo with lung abcesses for VATS ANE Past Medical History - Cardiovascular History Hx Hypertension: Yes Hx Arrhythmias: Yes Hx Chest Pain: No Hx Coronary Artery / Peripheral Vascular Disease: Yes Hx CHF / Valvular Disease: No Hx Palpitations: No Cardiovascular History Comment: PERICARDIAL EFFUSION 06/2015. PERICARDITIS. A- FIB. VT - Pulmonary History Hx COPD: No Hx Asthma/Reactive Airway Disease: Yes Hx Recent Upper Respiratory Infection: No Hx Oxygen in Use at Home: No Hx Sleep Apnea: Yes Sleep Apnea Screening Result - Last Documented: Positive Pulmonary History Comment: [facility] HS OXYGEN. BRONCHITIS 05/2015 - Neurologic History Hx Cerebrovascular Accident: No Hx Seizures: No Hx Dementia: No - Endocrine History Hx Diabetes: No Hypothyroid: No Hyperthyroid: No Obesity: no - Renal History Hx Renal Disorders: No - Liver History Hx Hepatic Disorders: No - Neurological & Psychiatric Hx Hx Neurological and Psychiatric Disorders: Yes Neurological / Psychiatric History Comment: ANXIETY - Cancer History Hx Cancer: No - Congenital Disorder History Hx Congenital Disorders: No - GI History Hx Gastrointestinal Disorders: Yes Gastrointestinal History Comment: UPPER GI BLEED 10/2015. 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 Pacemaker Model: [id number] Pacemaker Mode: DDDR Date Pacemaker Last Checked: 07/2015 ANE Patient History - Allergies Allergies/Adverse Reactions: No Known Allergies Allergy (Unverified 04/11/17 03:53) - Home Medications Home Medications: Albuterol [Proventil Inhaler HFA (*)] 2 puffs IH BID PRN 04/05/15 [Last Taken ] Apixaban [Eliquis] 5 mg PO BID 04/24/15 [Last Taken 04/10/17 20:00] Aspirin [Aspirin 81mg (*)] 81 mg PO HS 04/24/15 [Last Taken 04/10/17] Herbals/Supplements -Info Only 1 each PO DAILY 04/24/15 [Last Taken 10/20/15] Ipratropium [Atrovent Hfa (*)] 2 puffs IH Q6 PRN 05/28/15 [Last Taken 10/20/15] Sotalol HCl [Sotalol] 120 mg PO BID 05/28/15 [Last Taken 04/10/17 21:00] Calcium Citrate [Citracal] 400 mg PO DAILY 06/04/15 [Last Taken 04/10/17] Cholecalciferol Vit D3 [Vitamin D3 2000 units] 4,000 units PO DAILY 06/04/15 [ Last Taken 04/10/17] Cyanocobalamin [Vitamin B12 (*)] 2,000 mcg PO HS 06/04/15 [Last Taken 04/10/17] Multivitamins [Multivitamin (*)] 1 each PO HS 06/18/15 [Last Taken 04/10/17] Ascorbic Acid [Vitamin C 500 mg (*)] 1,000 mg PO DAILY 04/11/17 [Last Taken 03/20] Atorvastatin Calcium [Lipitor 20 mg (*)] 20 mg PO HS 04/11/17 [Last Taken ] Colchicine [Colchicine (*)] 0.6 mg PO HS 04/11/17 [Last Taken 04/10/17] Glucosamine/Chondroitin [Glucosamine/Chondroitin (*)] 1 each PO DAILY 04/11/17 [ Last Taken 04/10/17] Lisinopril [Zestril 2.5 mg (*)] 2.5 mg PO HS 04/11/17 [Last Taken 04/10/17] [place]-3 Fatty Acids [Fish Oil 1000 mg (*)] 2,000 mg PO BID 04/11/17 [Last Taken 04/10/17 21:00] levOFLOXACIN [levAQUIN (*)] 750 mg PO DAILY 04/11/17 [Last Taken Unknown] metroNIDAZOLE [Flagyl 500 mg (*)] 500 mg PO TID 04/11/17 [Last Taken 04/10/17 20 :00] oxyCODONE/APAP 5/325 [Percocet 5/325 (*)] 1 - 2 tab PO Q6H PRN 04/11/17 [Last Taken 04/10/17 20:00] - NPO status NPO Since - Liquids (Date): 04/14/17 NPO Since - Liquids (Time): 23:30 NPO Since - Solids (Date): 04/14/17 NPO Since - Solids (Time): 19:15 - Anes Hx Anes Hx: no prior problems - Smoking Hx Smoking Status: Former smoker - Alcohol Use Alcohol Use: None ANE Labs/Vital Signs - Labs Result Diagrams: 04/14/17 03:50 04/14/17 03:50 - Vital Signs Blood Pressure: 110/61 Heart Rate: 68 Respiratory Rate: 28 O2 Sat (%): 93 Height: 182.88 cm Weight: 72.5 kg ANE Physical Exam - Airway Neck exam: decreased ROM Mallampati Score: Class 2 - Cardiovascular Cardiovascular: regular rate and rhythym - ASA Status ASA Status: III ANE Anesthesia Plan Anesthesia Plan: general endotracheal anesthesia Lines/Monitors: arterial line Specialized Airway: double lumen tube
[2017-04-15] MEDS ORDERED: fentaNYL 100 MCG/2 ML INJ ONE ×2 (08:33→10:45)
[2017-04-15] MEDS ORDERED: PROPOFOL 200 MG/20 ML VIAL ONE (08:33)
[2017-04-15] MEDS ORDERED: ROCURONIUM 50 MG/5 ML VIAL ONE (08:55)
[2017-04-15] MEDS ORDERED: BACITRACIN ZINC 14.2 GM OINTTUBE TP ONE (09:57)
[2017-04-15] MEDS ORDERED: PROMETHAZINE HCL 25 MG/ML INJ IVP PRN (10:01)
[2017-04-15] MEDS ORDERED: fentaNYL 100 MCG/2 ML INJ IVP PRN ×2 (10:01)
[2017-04-15] MEDS ORDERED: HYDROmorphONE/DILAUDID 1 MG/ML SYR IVP PRN (10:01)
[2017-04-15] MEDS ORDERED: NALOXONE HCL 0.4 MG/ML INJ IVP PRN (10:01)
--- NOTE | 2017-04-15 10:33 | POSTANESTH ---
Post Anesthetic Evaluation Cardiovascular Status: Similar to Pre-Op Cond Respiratory Status: Similar to Pre-op Cond. Level of Consciousness/Mental Status: Can Participate in Eval Pain Control: Adequate, Prn Tx Ordered Nausea/Vomiting Control: Adequate, Prn Tx Ordered Complications Possibly Related to Anesthesia: None Noted
--- NOTE | 2017-04-15 10:40 | POSTOPPROG ---
Post Op Note Date of Operation: 04/15/17 Surgeon: Guy Sherman Wildlife Ecologist: Dr. Luna Anesthesiologist: Dr. Ruelas Anesthesia: GET(General Endotracheal) Pre-op Diagnosis: L empyema Post-op Diagnosis: same Procedure: L VATS decortication Inf/Abcess present in the surg proc area at time of surgery?: Yes Depth: Organ Space EBL: Minimal Drains: Other ([id number])
[2017-04-15] MEDS ORDERED: HYDROmorphONE/DILAUDID 1 MG/ML SYR ONE (10:45)
[2017-04-15] MEDS: HYDROmorphONE/DILAUDID 1 MG/ML SYR IVP PRN ×2 (10:49→11:04)
--- NOTE | 2017-04-15 11:14 | GOP ---
[f rep st] OPERATIVE REPORT DATE OF OPERATION: 04/15/2017 SURGEON: Gualberto Sherman MD SET UP / OPERATOR: Dr. Luna, whose presence was requested by me and medically necessary for the safe and t imely completion of the case. ANESTHESIA: General endotracheal anesthesia via double-lumen tube. ANESTHESIOLOGIST: Dr. Ruelas. PREOPERATIVE DIAGNOSIS: Left empyema. POSTOPERATIVE DIAGNOSIS: Left empyema. PROCEDURE PERFORMED: Left video-assisted thoracoscopic decortication. FINDINGS: Patient had multiple small loculated collections with some peel in the left posterior asp ect of the thorax. No other lesions were identified. ESTIMATED BLOOD LOSS: 20 cc. INDICATIONS: A 61-year-old male with a history of left posterior pleura abscesses and potential emp yema. Risks and benefits of procedure were discussed with the patient, all questions were answered, and he wished to proceed. DESCRIPTION OF PROCEDURE: Patient placed in the supine position initially. After the induction of adequate double-lumen general endotracheal anesthesia, the patient was moved to the right lateral de cubitus position. He was then prepped and draped in standard surgical fashion. 0.5% Marcaine was i njected throughout the mid axillary line approximately the 6th intercostal space. An incision made with #15 blade. This was carried down through subcutaneous tissue with blunt dissection. Blunt dis section was used to tunnel over the rib and a trocar was inserted. Camera followed and no apparent damage was identified with trocar placement. The lung had been deflated on the left side and 2 more ports were then placed. These were placed under direct vision after injecting 0.5% Marcaine for lo rachel anesthesia. The left hemithorax was inspected. There were multiple loculations and small peel identified in the left posterior aspect of the hemithorax. Cultures of the fluid as well as some of the peel tissue. The remainder was then decorticated using blunt dissection. The left lung was thoroughly irrigate d and aspirated. The lung was reinflated and found to reinflate well. An angled 32-Sami chest tu be was placed through the center incision and directed toward the posterior aspect inferiorly. It w as sutured in place using 0-silk in an interrupted fashion. The lung was reinflated and inspected o n the way out. The trocars were withdrawn. Good hemostasis was noted. No other lesions were ident ified. The skin at the remaining trocar sites was closed with 4-0 Monocryl in a subcuticular stitch . Wounds were sterilely dressed. The patient was returned to the supine position and extubated. H e was then taken to PACU in stable condition. COMPLICATIONS: None. DRAINS: Include chest tube. /[id number]/MODL
[2017-04-15] MEDS: cefTRIAXone 2 GM in D5W 50 ML IV SCH (11:45)
--- NOTE | 2017-04-15 12:59 | HOSPPROG ---
Hospitalist Progress Note Assessment/Plan: 61-year-old man with a recent diagnosis for perirectal abscess. It was drained 2 days ago at a [facility] and started on antibiotics Levaquin and Flagyl. The patient did not start the Levaquin but did start the Flagyl postop. He comes in for increasing left-sided chest pain and was diagnosed with a left lower lobe pneumonia with microabscesses. # Acute left lower lobe pneumonia with microabscesses - noted on CT chest on admission -Patient with intense persistent pleuritic pain - CXR (personally reviewed and interpreted) left sided pleural effusion resolved with CT in place - pneumonia LLL better visualized blood cultures 04/11 remain NGTD Oxygen saturations 98% on 3 L - Continue current antibiotics - micro sent from OR on plueral fluid - holding Eliquis for VATS this am - continue monitoring blood cultures # persistent hypotension- systolic blood pressures in the 80-90's- may be combination of volume and cardiac medications - hold KENDALL inhibitor - NS maintenance overnight while NPO - hold parameters on sotalol # Perirectal abscess, drain 2 days prior to admission at the [facility] by Dr. Sherman. Not entirely drained by initial procedure s/p OR drainage and drain 04/12 - denies pain this am - Continue p.r.n. IV pain medication - continue Abx # acute leukocytosis- WBC 17-> 19 - suspect multifactorial from pneumonia and perirectal abscess - continue current antibiotics - work towards pleural fluid drainage and evaluation # history of ventricular arrhythmias status post AICD placement - continue sotalol. # atrial fibrillation - currently rate controlled - continue Eliquis and sotalol # COPD- adding scheduled duo nebs today # Anxiety, severe. cont prn ativan. # diet tolerating regular # prophylaxis - holding Eliquis # disposition greater than 2 midnights as patient requiring IV antibiotics for micro abscesses of the lung and repeat perirectal drainage and management of new pleural effusion I have discussed the case with RN- pt stable returning from OR - CT in place Subjective: pain post OP - CT in place Objective: Vital Signs Temp Pulse Resp BP Pulse Ox 36.5 C 100 20 92/56 L 98 04/15/17 12:00 04/15/17 12:32 04/15/17 12:00 04/15/17 12:32 04/15/17 12:00 Microbiology 04/15/17 09:36 Gram Stain - Final Pleural Fluid - Other 04/15/17 09:41 Gram Stain - Final Other - Tissue 04/12/17 11:42 Gram Stain - Final Buttock - Eswab Laboratory Results 04/14/17 03:50 04/14/17 03:50 04/14/17 04/15/17 04/16/17 05:59 05:59 05:59 Intake Total 2640 1910 1200 Output Total 15 300 30 Balance 2625 1610 1170 PT 16.1 SEC (12.0-15.0) H 04/11/17 04:19 INR 1.29 (0.83-1.16) H 04/11/17 04:19 - Physical Exam Constitutional: appears nourished Eyes: anicteric sclera Ears, Nose, Mouth, Throat: moist mucous membranes Cardiovascular: regular rate and rhythym Respiratory: reduced air movement Gastrointestinal: normoactive bowel sounds, soft, non-tender abdomen Genitourinary: no bladder fullness Skin: warm, normal color Musculoskeletal: No asymmetric calves Neurologic: AAOx3 Psychiatric: interacting appropriately Lymph, Heme, Immunologic: no cervical LAD ICD10 Worksheet Patient Problems: Problems Problem Status Onset Paracolic abscess Acute Pneumonia Acute Abdominal pain Acute Acute respiratory failure with hypoxia Acute COPD with acute exacerbation Acute Chronic chest pain Acute ICD (implantable cardioverter-defibrillator) in place Acute ICD (implantable cardioverter-defibrillator), dual, in situ Acute Mass of cecum Acute Pericarditis Acute Small bowel obstruction Acute
[2017-04-15] MEDS: CALCIUM CARBONATE 500 MG TAB PO SCH (15:18)
[2017-04-15] MEDS: ASCORBIC ACID 500 MG TAB PO SCH (15:18)
[2017-04-15] MEDS: CHOLECALCIFEROL VIT D3 1,000 UNITS TAB PO SCH (15:19)
[2017-04-15] MEDS: OMEGA-3 FATTY ACIDS 1,000 MG CAP PO SCH ×2 (15:21→21:14)
[2017-04-15] MEDS: SOTALOL HCL 80 MG TAB PO SCH ×2 (15:22→21:15)
[2017-04-15] MEDS: SENNOSIDES/DOCUSATE SODIUM TAB PO SCH ×2 (15:22→21:14)
[2017-04-15] MEDS: oxyCODONE IR 5 MG TAB PO PRN ×3 (15:24→21:18)
[2017-04-15] MEDS: NS 1,000 ML IV SCH (16:07)
[2017-04-15] MEDS: IPRATROPIUM HFA INHALER IH PRN (19:29)
[2017-04-15] MEDS ORDERED: NS 500 ML IV ONE (20:22)
[2017-04-15] MEDS: ASPIRIN 81 MG CHEWABLE TAB PO SCH (21:13)
[2017-04-15] MEDS: COLCHICINE 0.6 MG CAP/TAB PO SCH (21:14)
[2017-04-15] MEDS: MULTIVITAMINS 1 EACH TAB PO SCH (21:14)
[2017-04-15] MEDS: CYANO/VITAMIN B12 1000 MCG TAB PO SCH (21:14)
[2017-04-15] MEDS: ATORVASTATIN CALCIUM 20 MG TAB PO SCH (21:14)
[2017-04-16] MEDS: oxyCODONE IR 5 MG TAB PO PRN ×7 (00:11→23:27)
[2017-04-16] MEDS: LORazepam 0.5 MG TAB PO PRN ×2 (00:11→23:27)
[2017-04-16] MEDS: NS 1,000 ML IV SCH ×2 (04:00→16:56)
[2017-04-16] MEDS: IPRATROPIUM/ALBUTEROL 3 ML DEYVIAL IH SCH ×4 (05:05→22:02)
[2017-04-16 06:26] LABS: HEMATOCRIT 28.6 % (40.0-51.0); HEMOGLOBIN 9.7 g/dL (13.7-17.5); LIPEMIA HEMOLYSIS FLAG 90 (0-99); MEAN CELL HEMOGLOBIN 31.2 pg (27.9-34.1); MEAN CELL HEMOGLOBIN CONCENTR. 33.9 g/dL (32.4-36.7); PLATELET COUNT 411 10^3/uL (150-400); RED BLOOD CELL COUNT 3.11 10^6/uL (4.40-6.38); RED CELL DISTRIBUTION WIDTH 13.7 % (11.5-15.2)
[2017-04-16 06:45] LABS: ANION GAP 5 mEq/L (8-16); CALCIUM 7.9 mg/dL (8.5-10.4); CARBON DIOXIDE 26 mEq/l (22-31); CHLORIDE 101 mEq/L (97-110); CREATININE 0.6 mg/dL (0.7-1.3); GLOMERULAR FILTRATION RATE > 60; GLUCOSE 99 mg/dL (70-100); POTASSIUM 4.5 mEq/L (3.5-5.2); SODIUM 132 mEq/L (134-144)
[2017-04-16] MEDS: SOTALOL HCL 80 MG TAB PO SCH ×2 (08:42→20:14)
[2017-04-16] MEDS: CHOLECALCIFEROL VIT D3 1,000 UNITS TAB PO SCH (08:43)
[2017-04-16] MEDS: ASCORBIC ACID 500 MG TAB PO SCH (08:43)
[2017-04-16] MEDS: SENNOSIDES/DOCUSATE SODIUM TAB PO SCH ×2 (08:44→20:15)
[2017-04-16] MEDS: CALCIUM CARBONATE 500 MG TAB PO SCH (08:44)
[2017-04-16] MEDS: OMEGA-3 FATTY ACIDS 1,000 MG CAP PO SCH ×2 (08:45→20:25)
[2017-04-16] MEDS: cefTRIAXone 2 GM in D5W 50 ML IV SCH (08:45)
--- NOTE | 2017-04-16 10:03 | SOAPPROG ---
SOAP Progress Note Assessment/Plan: Assessment: Stable to improving. CT to water seal, repeat CXR. D/w patient, questions answered. Plan: 04/12/17 11:06 04/13/17 09:07 04/14/17 09:41 04/15/17 08:08 04/16/17 10:02 Subjective: Patient c/o pain at the CT insertion site. No abd/back pain. Denies SOB. Objective: Vital Signs Temp Pulse Resp BP Pulse Ox 37.6 C 70 18 91/65 L 94 04/16/17 07:34 04/16/17 07:34 04/16/17 07:34 04/16/17 07:34 04/16/17 07:34 Microbiology 04/15/17 09:41 Gram Stain - Final Other - Tissue 04/15/17 09:36 Gram Stain - Final Pleural Fluid - Other 04/11/17 06:02 Blood Culture - Final Blood 04/11/17 06:02 Blood Culture - Final Blood 04/15/17 09:41 Mycobacterial Smear (WILL) - Final Other - Tissue 04/15/17 09:36 Mycobacterial Smear (WILL) - Final Pleural Fluid - Other 04/12/17 11:42 Gram Stain - Final Buttock - Eswab Laboratory Results 04/16/17 06:10 04/16/17 06:10 04/15/17 04/16/17 04/17/17 05:59 05:59 05:59 Intake Total 1910 5257 Output Total 300 1945 950 Balance 1610 3312 -950 PT 16.1 SEC (12.0-15.0) H 04/11/17 04:19 INR 1.29 (0.83-1.16) H 04/11/17 04:19 Alert, NAD CT without leak, min tidal. Serosang OP Abd soft, NTTP ICD10 Worksheet Patient Problems: Problems Problem Status Onset Paracolic abscess Acute Pneumonia Acute Abdominal pain Acute Acute respiratory failure with hypoxia Acute COPD with acute exacerbation Acute Chronic chest pain Acute ICD (implantable cardioverter-defibrillator) in place Acute ICD (implantable cardioverter-defibrillator), dual, in situ Acute Mass of cecum Acute Pericarditis Acute Small bowel obstruction Acute
--- NOTE | 2017-04-16 11:37 | PCMIDPN ---
Assessment/Plan: # Perirectal abscess and Lung abscess /empyema LLL - unclear unifying diagnosis. s/p drain placement in perirectal abscess 04/12/2017 (now removed). VATS 04/15/2017, gram stain with GPC -- continue ceftriaxone for coverage of Streptococcus and metronidazole for oral and GI anaerobes -- unlikely GPC on gram stain refect enterococcus or MRSA + clinical improvement. Will not add vancomycin at this time # Leukocytosis : improved since drainage of empyema medications, antibiotics # 4 ceftriaxone 1 g IV daily Metronidazole 500 mg IV q.8h microbiology outside hospital perirectal cx :E coli and Streptococcus 04/11 blood cultures 2 sets: neg 04/12: perirectal abscess culture: Polymicrobial 04/15: pleural fluid +GPC Subjective: severe pain associated with chest tube. Very different than pleuritic pain associated prior to surgery eating well Objective: Vital Signs Temp Pulse Resp BP Pulse Ox 37.6 C 70 16 91/65 L 94 04/16/17 07:34 04/16/17 10:46 04/16/17 10:46 04/16/17 07:34 04/16/17 10:46 Microbiology 04/15/17 09:41 Gram Stain - Final Other - Tissue 04/15/17 09:36 Gram Stain - Final Pleural Fluid - Other 04/11/17 06:02 Blood Culture - Final Blood 04/11/17 06:02 Blood Culture - Final Blood 04/15/17 09:41 Mycobacterial Smear (WILL) - Final Other - Tissue 04/15/17 09:36 Mycobacterial Smear (WILL) - Final Pleural Fluid - Other 04/12/17 11:42 Gram Stain - Final Buttock - Eswab Laboratory Results 04/16/17 06:10 04/16/17 06:10 04/15/17 04/16/17 04/17/17 05:59 05:59 05:59 Intake Total 1910 5257 Output Total 300 1945 950 Balance 1610 3312 -950 C-Reactive Protein 196.8 mg/L (<10.0) H 04/12/17 03:50 - Physical Exam General Appearance: alert, no apparent distress EENT: pale conjunctiva, No thrush Respiratory: crackles (L mid lung field, decreased bs in base) Neck: supple Cardiac/Chest: regular rate, rhythm, No systolic murmur Extremities: pedal edema (L>R, trace) Abdomen: non-tender, soft Skin: No rash Neuro/Psych: alert, normal mood/affect, oriented x 3 (Care coordinated with Dr. Sherman) - Time Spent With Patient Time Spent with Patient: greater than 25 minutes (care coordinated with dr. Sherman) Time Spent with Patient: Greater than 25 minutes spent on this patients care, greater than 50% of time spent counseling, educating, and coordinating care regarding the above mentioned plan. ICD10 Worksheet Patient Problems: Problems Problem Status Onset Paracolic abscess Acute Pneumonia Acute Abdominal pain Acute Acute respiratory failure with hypoxia Acute COPD with acute exacerbation Acute Chronic chest pain Acute ICD (implantable cardioverter-defibrillator) in place Acute ICD (implantable cardioverter-defibrillator), dual, in situ Acute Mass of cecum Acute Pericarditis Acute Small bowel obstruction Acute
--- NOTE | 2017-04-16 13:43 | WOCRNPDOC ---
WOCRN Advanced Assessment Note - Skin Integrity Problem, Advanced Assess Bilateral Ear Pressure Injury Dressing Type: Other Other Dressing Type: oxygen tubing [id number] foam protectors Dressing Description: Clean/Dry, Intact Exudate Amount: None Integumentary Issue Intervention: Visualized Under Dressing Coretta Wound Tissue: Erythema, Non-blanching, Intact Coretta Wound Swelling: None Site Odor: None Site Measurement - Head-to-Toe Length X Width X Depth (cm): 1 x 0.5 x 0 Pressure Injury Stage: Stage 1 Pressure Injury Present on Admit: No Skin Integrity Problem Comment: Staff has addressed finding of erythema of intact skin above ears, under O2 tubing appropriately: Per RN report, applied Cavilon to skin, foam protectors to tubing in contact with skin. Discussed with VANESSA Olivares present.
[2017-04-16] MEDS ORDERED: HYDROmorphONE/DILAUDID 1 MG/ML SYR IVP PRN (13:45)
--- NOTE | 2017-04-16 13:59 | HOSPPROG ---
Hospitalist Progress Note Assessment/Plan: 61-year-old man with a recent diagnosis for perirectal abscess. It was drained 2 days ago at a [facility] and started on antibiotics Levaquin and Flagyl. The patient did not start the Levaquin but did start the Flagyl postop. He comes in for increasing left-sided chest pain and was diagnosed with a left lower lobe pneumonia with microabscesses. # Acute left lower lobe pneumonia with microabscesses/effusion - noted on CT chest on admission -Patient with intense persistent pleuritic pain - CXR (personally reviewed and interpreted) left sided pleural effusion resolved with CT in place - pneumonia LLL better visualized blood cultures 04/11 remain NGTD Oxygen saturations 94% on 3 L - Continue current antibiotics - micro sent from OR on plueral fluid - holding Eliquis for VATS this am - continue monitoring blood cultures # persistent hypotension- systolic blood pressures in the 80-90's- may be combination of volume and cardiac medications - holding KENDALL inhibitor - hold parameters on sotalol # Perirectal abscess, drain 2 days prior to admission at the [facility] by Dr. Sherman. Not entirely drained by initial procedure s/p OR drainage and drain 04/12 (now removed) - denies pain this am - Continue p.r.n. IV pain medication - continue Abx # acute leukocytosis- WBC 21-> 15 - suspect multifactorial from pneumonia and perirectal abscess - continue current antibiotics - follow pleural fluid micro # history of ventricular arrhythmias status post AICD placement - continue sotalol. # atrial fibrillation - currently rate controlled - continue Eliquis and sotalol # COPD- adding scheduled duo nebs today # Anxiety, severe. cont prn ativan. # diet tolerating regular # prophylaxis - holding Eliquis # disposition greater than 2 midnights as patient requiring IV antibiotics for micro abscesses of the lung and repeat perirectal drainage and management of pleural effusion I have discussed the case with RN- will change pain med to IV dilaudid and persistent pain with morphine/oxycodone Subjective: pain remains terrible Objective: Vital Signs Temp Pulse Resp BP Pulse Ox 37.6 C 70 16 91/65 L 94 04/16/17 07:34 04/16/17 10:46 04/16/17 10:46 04/16/17 07:34 04/16/17 10:46 Microbiology 04/15/17 09:41 Gram Stain - Final Other - Tissue 04/15/17 09:36 Gram Stain - Final Pleural Fluid - Other 04/11/17 06:02 Blood Culture - Final Blood 04/11/17 06:02 Blood Culture - Final Blood 04/15/17 09:41 Mycobacterial Smear (WILL) - Final Other - Tissue 04/15/17 09:36 Mycobacterial Smear (WILL) - Final Pleural Fluid - Other 04/12/17 11:42 Gram Stain - Final Buttock - Eswab Laboratory Results 04/16/17 06:10 04/16/17 06:10 04/15/17 04/16/17 04/17/17 05:59 05:59 05:59 Intake Total 1910 5257 Output Total 300 1945 950 Balance 1610 3312 -950 PT 16.1 SEC (12.0-15.0) H 04/11/17 04:19 INR 1.29 (0.83-1.16) H 04/11/17 04:19 - Physical Exam Constitutional: appears nourished Eyes: anicteric sclera Ears, Nose, Mouth, Throat: moist mucous membranes Cardiovascular: regular rate and rhythym Respiratory: reduced air movement, inspiratory crackles Gastrointestinal: normoactive bowel sounds, soft, non-tender abdomen Genitourinary: no bladder fullness Skin: warm, normal color Musculoskeletal: No asymmetric calves Neurologic: AAOx3 Psychiatric: No agitated Lymph, Heme, Immunologic: no cervical LAD ICD10 Worksheet Patient Problems: Problems Problem Status Onset Paracolic abscess Acute Pneumonia Acute Abdominal pain Acute Acute respiratory failure with hypoxia Acute COPD with acute exacerbation Acute Chronic chest pain Acute ICD (implantable cardioverter-defibrillator) in place Acute ICD (implantable cardioverter-defibrillator), dual, in situ Acute Mass of cecum Acute Pericarditis Acute Small bowel obstruction Acute
[2017-04-16] MEDS: HYDROmorphONE/DILAUDID 1 MG/ML SYR IVP PRN ×2 (14:30→20:12)
[2017-04-16] MEDS: CYANO/VITAMIN B12 1000 MCG TAB PO SCH (20:14)
[2017-04-16] MEDS: MULTIVITAMINS 1 EACH TAB PO SCH (20:14)
[2017-04-16] MEDS: ASPIRIN 81 MG CHEWABLE TAB PO SCH (20:14)
[2017-04-16] MEDS: COLCHICINE 0.6 MG CAP/TAB PO SCH (20:15)
[2017-04-16] MEDS: APIXABAN 5 MG TAB PO SCH (20:25)
[2017-04-16] MEDS: ATORVASTATIN CALCIUM 20 MG TAB PO SCH (20:26)
[2017-04-17] MEDS: oxyCODONE IR 5 MG TAB PO PRN ×6 (06:02→23:12)
[2017-04-17] MEDS: IPRATROPIUM/ALBUTEROL 3 ML DEYVIAL IH SCH ×4 (06:18→23:32)
[2017-04-17 07:58] LABS: ANION GAP 8 mEq/L (8-16); CALCIUM 7.9 mg/dL (8.5-10.4); CARBON DIOXIDE 25 mEq/l (22-31); CHLORIDE 100 mEq/L (97-110); CREATININE 0.6 mg/dL (0.7-1.3); GLOMERULAR FILTRATION RATE > 60; GLUCOSE 112 mg/dL (70-100); POTASSIUM 4.6 mEq/L (3.5-5.2); SODIUM 133 mEq/L (134-144)
[2017-04-17] MEDS: POLYETHYLENE GLYCOL 3350 17 GM PKT PO PRN (07:59)
[2017-04-17] MEDS: OMEGA-3 FATTY ACIDS 1,000 MG CAP PO SCH ×2 (07:59→19:55)
[2017-04-17] MEDS: ASCORBIC ACID 500 MG TAB PO SCH (08:00)
[2017-04-17] MEDS: SENNOSIDES/DOCUSATE SODIUM TAB PO SCH ×2 (08:00→21:56)
[2017-04-17] MEDS: CHOLECALCIFEROL VIT D3 1,000 UNITS TAB PO SCH (08:00)
[2017-04-17] MEDS: SOTALOL HCL 80 MG TAB PO SCH ×2 (08:01→19:55)
[2017-04-17] MEDS: CALCIUM CARBONATE 500 MG TAB PO SCH (08:01)
[2017-04-17] MEDS: APIXABAN 5 MG TAB PO SCH ×2 (08:01→19:54)
[2017-04-17] MEDS: cefTRIAXone 2 GM in D5W 50 ML IV SCH (08:01)
[2017-04-17] MEDS: HYDROmorphONE/DILAUDID 1 MG/ML SYR IVP PRN ×4 (08:02→21:20)
--- NOTE | 2017-04-17 10:48 | HOSPPROG ---
Hospitalist Progress Note Assessment/Plan: 61-year-old man with a recent diagnosis for perirectal abscess. It was drained 2 days [employer] at [facility] and started on antibiotics Levaquin and Flagyl. The patient did not start the Levaquin but did start the Flagyl postop. He was admitted with increasing left-sided chest pain and was diagnosed with a left lower lobe pneumonia with microabscesses. # Acute left lower lobe pneumonia with microabscesses/empyema - s/p VATS. BCx's , pleural fluid Cx from OR NGTD. WBC's trending down. CXR (personally reviewed and interpreted) left sided pleural effusion resolved with chest tube in place Oxygen saturations 94%, down to 2 L - Continue current antibiotics, Ceftriaxone plus Flagyl (for below) - chest tube management per surgery - continue monitoring blood cultures - ID following, appreciate assistance # Perirectal abscess, drained 2 days [employer] at [facility] by Dr. Sherman. Not entirely drained by initial procedure. s/p OR drainage and drain placed 04/12 (now removed) - denies pain this am - Continue p.r.n. IV pain medication - continue Abx, Ceftriaxone plus Flagyl # hypotension- SBP's improved to 102 this am, this is his baseline - holding KENDALL inhibitor - hold parameters on sotalol # history of ventricular arrhythmias status post AICD placement - continue sotalol. # atrial fibrillation - currently rate controlled - continue Eliquis and sotalol # COPD- adding scheduled duo nebs today # Anxiety, severe. cont prn ativan. # diet tolerating regular # prophylaxis - holding Eliquis # disposition greater than 2 midnights as patient requiring IV antibiotics for micro abscesses of the lung and repeat perirectal drainage and management of pleural effusion Subjective: Pt feels okay this am, c/o pain from chest tube. No fevers. Having BM's. No fevers. Breathing improved. Still some coughing. Objective: Vital Signs Temp Pulse Resp BP Pulse Ox 36.6 C 117 H 20 102/70 94 04/17/17 04:00 04/17/17 07:40 04/17/17 07:40 04/17/17 07:40 04/17/17 07:40 Microbiology 04/15/17 09:41 Gram Stain - Final Other - Tissue 04/15/17 09:36 Gram Stain - Final Pleural Fluid - Other 04/11/17 06:02 Blood Culture - Final Blood 04/11/17 06:02 Blood Culture - Final Blood Laboratory Results 04/16/17 06:10 04/17/17 07:25 04/16/17 04/17/17 04/18/17 05:59 05:59 05:59 Intake Total 5257 2825 Output Total 1945 1975 1700 Balance 3312 850 -1700 PT 16.1 SEC (12.0-15.0) H 04/11/17 04:19 INR 1.29 (0.83-1.16) H 04/11/17 04:19 - Physical Exam Constitutional: no apparent distress Eyes: PERRL Ears, Nose, Mouth, Throat: moist mucous membranes Cardiovascular: regular rate and rhythym Respiratory: no respiratory distress, other (decreased at left base, with faint crackles) Gastrointestinal: normoactive bowel sounds, soft, non-tender abdomen Skin: warm Musculoskeletal: full muscle strength Neurologic: AAOx3 Psychiatric: interacting appropriately ICD10 Worksheet Patient Problems: Problems Problem Status Onset Paracolic abscess Acute Pneumonia Acute Abdominal pain Acute Acute respiratory failure with hypoxia Acute COPD with acute exacerbation Acute Chronic chest pain Acute ICD (implantable cardioverter-defibrillator) in place Acute ICD (implantable cardioverter-defibrillator), dual, in situ Acute Mass of cecum Acute Pericarditis Acute Small bowel obstruction Acute
--- NOTE | 2017-04-17 11:34 | SOAPPROG ---
SOAP Progress Note Assessment/Plan: Assessment: Improving. CT drainage clearing, poss removal in AM. Plan: 04/12/17 11:06 04/13/17 09:07 04/14/17 09:41 04/15/17 08:08 04/16/17 10:02 04/17/17 11:32 Subjective: Persistent L CP at CT site, improved with meds. Objective: Vital Signs Temp Pulse Resp BP Pulse Ox 36.6 C 95 12 102/70 93 04/17/17 04:00 04/17/17 11:02 04/17/17 11:02 04/17/17 07:40 04/17/17 11:02 Microbiology 04/15/17 09:36 Gram Stain - Final Pleural Fluid - Other 04/15/17 09:41 Gram Stain - Final Other - Tissue 04/11/17 06:02 Blood Culture - Final Blood 04/11/17 06:02 Blood Culture - Final Blood Laboratory Results 04/16/17 06:10 04/17/17 07:25 04/16/17 04/17/17 04/18/17 05:59 05:59 05:59 Intake Total 5257 2825 Output Total 1945 1975 1700 Balance 3312 850 -1700 PT 16.1 SEC (12.0-15.0) H 04/11/17 04:19 INR 1.29 (0.83-1.16) H 04/11/17 04:19 Alert, NAD CT without tidal, serosang drainage. Abd soft, NTTP. ICD10 Worksheet Patient Problems: Problems Problem Status Onset Paracolic abscess Acute Pneumonia Acute Abdominal pain Acute Acute respiratory failure with hypoxia Acute COPD with acute exacerbation Acute Chronic chest pain Acute ICD (implantable cardioverter-defibrillator) in place Acute ICD (implantable cardioverter-defibrillator), dual, in situ Acute Mass of cecum Acute Pericarditis Acute Small bowel obstruction Acute
--- NOTE | 2017-04-17 17:04 | PCMIDPN ---
Assessment/Plan: Assessment: Pelvic abscess off the sigmoid colon. E coli and Streptococcus anginosus in initial culture from 1st drainage at a [facility]. Polymicrobial tyesha from our culture. Patient is continuing on ceftriaxone and Flagyl. No changes at present for this problem. Left lower lobe complex pneumonia with complicated effusion. Status post VATS procedure on 04/14/2017. GPCs in Gram stain but nothing growing yet. Suspect this process is also covered appropriately with ceftriaxone and Flagyl. Plan: 1. Continue both ceftriaxone and Flagyl. 2. Follow up on the surgical cultures as well as the chest tube output. 04/17/17 17:05 04/17/17 17:06 04/17/17 17:06 Subjective: Patient is sitting up in his hospital room in his chair. He has no new complaints. Feels some discomfort and pain from the chest tube insertion. No other new issues. Objective: Ceftriaxone # 6 Metronidazole # 5 Vital Signs Temp Pulse Resp BP Pulse Ox 36.9 C 70 12 123/68 H 95 04/17/17 15:29 04/17/17 16:47 04/17/17 16:47 04/17/17 15:29 04/17/17 16:47 Microbiology 04/15/17 09:41 Gram Stain - Final Other - Tissue 04/15/17 09:36 Gram Stain - Final Pleural Fluid - Other 04/12/17 11:42 Gram Stain - Final Buttock - Eswab Laboratory Results 04/16/17 06:10 04/17/17 07:25 04/16/17 04/17/17 04/18/17 05:59 05:59 05:59 Intake Total 5257 2825 Output Total 1945 1975 2500 Balance 3312 850 -2500 C-Reactive Protein 196.8 mg/L (<10.0) H 04/12/17 03:50 - Physical Exam General Appearance: WD/WN, alert, no apparent distress, non-toxic Respiratory: lungs clear, normal breath sounds, other (Chest tube left sign with serosanguineous discharge), No respiratory distress Cardiac/Chest: regular rate, rhythm, systolic murmur, No tachycardia, No irregularly irregular Skin: normal color, warm/dry, No rash Neuro/Psych: alert, normal mood/affect, oriented x 3 ICD10 Worksheet Patient Problems: Problems Problem Status Onset Paracolic abscess Acute Pneumonia Acute Abdominal pain Acute Acute respiratory failure with hypoxia Acute COPD with acute exacerbation Acute Chronic chest pain Acute ICD (implantable cardioverter-defibrillator) in place Acute ICD (implantable cardioverter-defibrillator), dual, in situ Acute Mass of cecum Acute Pericarditis Acute Small bowel obstruction Acute
[2017-04-17] MEDS: COLCHICINE 0.6 MG CAP/TAB PO SCH (19:53)
[2017-04-17] MEDS: ATORVASTATIN CALCIUM 20 MG TAB PO SCH (19:54)
[2017-04-17] MEDS: ASPIRIN 81 MG CHEWABLE TAB PO SCH (19:54)
[2017-04-17] MEDS: CYANO/VITAMIN B12 1000 MCG TAB PO SCH (19:54)
[2017-04-17] MEDS: MULTIVITAMINS 1 EACH TAB PO SCH (19:55)
[2017-04-18] MEDS: oxyCODONE IR 5 MG TAB PO PRN ×7 (02:13→21:47)
[2017-04-18] MEDS: LORazepam 0.5 MG TAB PO PRN (02:14)
[2017-04-18] MEDS: HYDROmorphONE/DILAUDID 1 MG/ML SYR IVP PRN ×5 (03:14→20:25)
[2017-04-18 04:06] LABS: % IMMATURE GRANULYOCYTES 0.6 % (0.0-1.1); ADD DIFF? NO; ADD MORPH? NO; ADD SCAN? NO; ATYPICAL LYMPHOCYTE FLAG 20 (0-99); FRAGMENT RBC FLAG 0 (0-99); HEMATOCRIT 29.3 % (40.0-51.0); HEMOGLOBIN 9.7 g/dL (13.7-17.5); LEFT SHIFT FLG 10 (0-99); LIPEMIA HEMOLYSIS FLAG 80 (0-99); MEAN CELL HEMOGLOBIN 30.2 pg (27.9-34.1); MEAN CELL HEMOGLOBIN CONCENTR. 33.1 g/dL (32.4-36.7); MEAN CELL VOLUME 91.3 fL (81.5-99.8); MEAN PLATELET VOLUME 9.7 fL (8.7-11.7); PLATELET CLUMPS FLAG 10 (0-99); PLATELET COUNT 468 10^3/uL (150-400); RED BLOOD CELL COUNT 3.21 10^6/uL (4.40-6.38); RED CELL DISTRIBUTION WIDTH 13.7 % (11.5-15.2)
[2017-04-18 04:21] LABS: ANION GAP 7 mEq/L (8-16); CALCIUM 7.8 mg/dL (8.5-10.4); CARBON DIOXIDE 27 mEq/l (22-31); CHLORIDE 99 mEq/L (97-110); CREATININE 0.6 mg/dL (0.7-1.3); GLOMERULAR FILTRATION RATE > 60; GLUCOSE 98 mg/dL (70-100); POTASSIUM 4.4 mEq/L (3.5-5.2); SODIUM 133 mEq/L (134-144)
[2017-04-18] MEDS: IPRATROPIUM/ALBUTEROL 3 ML DEYVIAL IH SCH ×4 (05:10→23:50)
[2017-04-18] MEDS: CHOLECALCIFEROL VIT D3 1,000 UNITS TAB PO SCH (08:47)
[2017-04-18] MEDS: OMEGA-3 FATTY ACIDS 1,000 MG CAP PO SCH ×2 (08:47→20:48)
[2017-04-18] MEDS: cefTRIAXone 2 GM in D5W 50 ML IV SCH (08:47)
[2017-04-18] MEDS: ASCORBIC ACID 500 MG TAB PO SCH (08:47)
[2017-04-18] MEDS: APIXABAN 5 MG TAB PO SCH ×2 (08:48→20:48)
[2017-04-18] MEDS: SOTALOL HCL 80 MG TAB PO SCH ×2 (08:48→20:48)
[2017-04-18] MEDS: CALCIUM CARBONATE 500 MG TAB PO SCH (08:48)
[2017-04-18] MEDS: SENNOSIDES/DOCUSATE SODIUM TAB PO SCH ×2 (08:49→20:47)
--- NOTE | 2017-04-18 08:50 | SOAPPROG ---
SOAP Progress Note Assessment/Plan: Assessment: s/p VATS for parapneumonic effusion, cultures pending CXR shows persistant LLL consolidation Plan: monitor cultures PA/lat CXR in AM probable CT removal tomorrow 04/18/17 08:48 Subjective: S/p VATS for parapneumonic effusion 04/15. Gram stains +GPC/cultures no growth at 48 hours on Ceftriaxone/Flagyl c/o pain at CT site Objective: Vital Signs Temp Pulse Resp BP Pulse Ox 37.2 C 92 15 100/63 94 04/18/17 07:59 04/18/17 07:59 04/18/17 07:59 04/18/17 07:59 04/18/17 07:59 Microbiology 04/15/17 09:41 Gram Stain - Final Other - Tissue 04/15/17 09:36 Gram Stain - Final Pleural Fluid - Other 04/12/17 11:42 Gram Stain - Final Buttock - Eswab Laboratory Results 04/18/17 03:16 04/18/17 03:16 04/17/17 04/18/17 04/19/17 05:59 05:59 05:59 Intake Total 2825 2402 125 Output Total 1975 3690 20 Balance 850 -1288 105 PT 16.1 SEC (12.0-15.0) H 04/11/17 04:19 INR 1.29 (0.83-1.16) H 04/11/17 04:19 CXR shows LLL consolidation vs persistant effusion - Pending Discharge Pending Discharge Within 24 Hours: No Physical Exam - Physical Exam General Appearance: alert, mild distress Cardiac/Chest: other (CT dressing secured/CT without air leak, serous drainage) Neuro/Psych: alert, depressed affect ICD10 Worksheet Patient Problems: Problems Problem Status Onset Paracolic abscess Acute Pneumonia Acute Abdominal pain Acute Acute respiratory failure with hypoxia Acute COPD with acute exacerbation Acute Chronic chest pain Acute ICD (implantable cardioverter-defibrillator) in place Acute ICD (implantable cardioverter-defibrillator), dual, in situ Acute Mass of cecum Acute Pericarditis Acute Small bowel obstruction Acute
--- NOTE | 2017-04-18 10:31 | PCMIDPN ---
Assessment/Plan: Assessment/Plan: 1. Perirectal abscess: - s/p I & D at [facility] on 04/09 and another on 04/12 here. -Cultures from [facility] with Strep anginosus and E. coli. Called micro. E.coli is resistant to Ceftraixone. -Drain apparently fell out. -blood cx here ngtd (but were after patient has recieved antibiotics from 04/09/17 ). TTE wihtout vegetations. -Recommend f/u pelvis Ct to ensure resolved. If so, than can leave Ceftriaxone to address Strep anginosus more directly. If residual collection present, then may need to adjust antibiotics. E.coli is sensitive to Augmentin, invanz, cipro per micro. 2. LLL pneumonia wiht Empyema: - s/p VATS on 04/15/17 -Chest tube remains, - GS with GPC , ngtd on cultures. - ON ceftriaxone. -Will need 4 weeks from time of VATS meds ceftraixone 2g daily- flagyl 500mg q8- Subjective: afebrile. improved buttocks pain. he states drain felt out. denies sob, but feels restricted to take deep breaths. some cough. chest tube in place. denies diarrhea. Objective: Vital Signs Temp Pulse Resp BP Pulse Ox 37.2 C 86 16 100/63 95 04/18/17 07:59 04/18/17 10:05 04/18/17 10:05 04/18/17 07:59 04/18/17 10:05 Microbiology 04/15/17 09:41 Gram Stain - Final Other - Tissue 04/15/17 09:36 Gram Stain - Final Pleural Fluid - Other 04/12/17 11:42 Gram Stain - Final Buttock - Eswab Laboratory Results 04/18/17 03:16 04/18/17 03:16 04/17/17 04/18/17 04/19/17 05:59 05:59 05:59 Intake Total 2825 2402 125 Output Total 0443 3690 20 Balance 850 -1288 105 C-Reactive Protein 196.8 mg/L (<10.0) H 04/12/17 03:50 - Physical Exam General Appearance: alert, no apparent distress Respiratory: coarse breath sounds Cardiac/Chest: regular rate, rhythm, other (left chest tube) Abdomen: normal bowel sounds, non-tender, soft, No distended Rectal: other (nontender on palpation of buttocks near gluteal fold. no induration. ) Skin: No rash ICD10 Worksheet Patient Problems: Problems Problem Status Onset Paracolic abscess Acute Pneumonia Acute Abdominal pain Acute Acute respiratory failure with hypoxia Acute COPD with acute exacerbation Acute Chronic chest pain Acute ICD (implantable cardioverter-defibrillator) in place Acute ICD (implantable cardioverter-defibrillator), dual, in situ Acute Mass of cecum Acute Pericarditis Acute Small bowel obstruction Acute
[2017-04-18] MEDS ORDERED: IOPAMIDOL (ISOVUE-300) 100 ML BTL ONE (10:43)
--- NOTE | 2017-04-18 13:33 | HOSPPROG ---
Hospitalist Progress Note Assessment/Plan: 61-year-old man with perirectal abscess. It was drained 2 days [employer] at [facility] and started on antibiotics Levaquin and Flagyl. The patient did not start the Levaquin but did start the Flagyl postop. He was admitted with increasing left- sided chest pain and was diagnosed with a left lower lobe pneumonia with microabscesses. # Acute left lower lobe pneumonia with microabscesses/empyema - s/p VATS 04/15. BCx's, pleural fluid Cx from OR NGTD though GPC's on GS. WBC's trending down. CXR (personally reviewed and interpreted) left sided pleural effusion resolved with chest tube in place Oxygen saturations 97%, down to 2 L - Continue current antibiotics, Ceftriaxone plus Flagyl (for below) - chest tube management per surgery - follow BCx's - ID following, appreciate assistance # Perirectal abscess, drained 2 days [employer] at [facility] by Dr. Sherman. Strep species resistant to Ceftriaxone. Not entirely drained by initial procedure. s/p OR drainage and drain placed 04/12 (now removed) - Repeat CT pelvis today, if abscess persists, may need to broaden atbx, reviewed with ID - Continue pain control, Oxycodone and Dilaudid doses up-titrated yesterday due to poor pain control # hypotension- SBP's improved to 102 this am, this is his baseline - holding KENDALL inhibitor - hold parameters on sotalol # history of ventricular arrhythmias status post AICD placement - continue sotalol. # atrial fibrillation - currently rate controlled - continue Eliquis and sotalol # COPD- adding scheduled duo nebs today # Anxiety, severe. cont prn ativan. # diet tolerating regular # prophylaxis - holding Eliquis # disposition greater than 2 midnights as patient requiring IV antibiotics for micro abscesses of the lung and repeat perirectal drainage and management of pleural effusion Subjective: Pt reports better pain control today. No fevers/chills. Breathing ok. No sophie-rectal pain. Objective: Vital Signs Temp Pulse Resp BP Pulse Ox 37.7 C 94 20 97/61 L 97 04/18/17 12:00 04/18/17 12:00 04/18/17 12:00 04/18/17 12:00 04/18/17 12:00 Microbiology 04/15/17 09:41 Gram Stain - Final Other - Tissue 04/15/17 09:36 Gram Stain - Final Pleural Fluid - Other 04/12/17 11:42 Gram Stain - Final Buttock - Eswab Laboratory Results 04/18/17 03:16 04/18/17 03:16 04/17/17 04/18/17 04/19/17 05:59 05:59 05:59 Intake Total 2827 2402 245 Output Total 2341 3090 1370 Balance 850 1288 -1125 PT 16.1 SEC (12.0-15.0) H 04/11/17 04:19 INR 1.29 (0.83-1.16) H 04/11/17 04:19 - Physical Exam Constitutional: no apparent distress Eyes: PERRL Ears, Nose, Mouth, Throat: moist mucous membranes Cardiovascular: regular rate and rhythym Respiratory: no respiratory distress, other (diminished left base) Gastrointestinal: normoactive bowel sounds, soft, non-tender abdomen Skin: warm Musculoskeletal: full muscle strength Neurologic: AAOx3 Psychiatric: interacting appropriately ICD10 Worksheet Patient Problems: Problems Problem Status Onset Paracolic abscess Acute Pneumonia Acute Abdominal pain Acute Acute respiratory failure with hypoxia Acute COPD with acute exacerbation Acute Chronic chest pain Acute ICD (implantable cardioverter-defibrillator) in place Acute ICD (implantable cardioverter-defibrillator), dual, in situ Acute Mass of cecum Acute Pericarditis Acute Small bowel obstruction Acute
[2017-04-18] MEDS: POLYETHYLENE GLYCOL 3350 17 GM PKT PO PRN (15:36)
[2017-04-18] MEDS: ASPIRIN 81 MG CHEWABLE TAB PO SCH (20:47)
[2017-04-18] MEDS: COLCHICINE 0.6 MG CAP/TAB PO SCH (20:48)
[2017-04-18] MEDS: MULTIVITAMINS 1 EACH TAB PO SCH (20:48)
[2017-04-18] MEDS: ATORVASTATIN CALCIUM 20 MG TAB PO SCH (20:48)
[2017-04-18] MEDS: CYANO/VITAMIN B12 1000 MCG TAB PO SCH (20:48)
[2017-04-19] MEDS: HYDROmorphONE/DILAUDID 1 MG/ML SYR IVP PRN ×3 (00:07→11:11)
[2017-04-19] MEDS: LORazepam 0.5 MG TAB PO PRN (00:14)
[2017-04-19] MEDS: oxyCODONE IR 5 MG TAB PO PRN ×4 (01:14→21:20)
[2017-04-19 05:02] LABS: % IMMATURE GRANULYOCYTES 0.7 % (0.0-1.1); ABSOLUTE IMMATURE GRANULOCYTES 0.11 10^3/uL (0.00-0.10); ADD DIFF? NO; ADD MORPH? NO; ADD SCAN? NO; ATYPICAL LYMPHOCYTE FLAG 0 (0-99); FRAGMENT RBC FLAG 0 (0-99); HEMATOCRIT 28.8 % (40.0-51.0); HEMOGLOBIN 9.5 g/dL (13.7-17.5); LEFT SHIFT FLG 20 (0-99); LIPEMIA HEMOLYSIS FLAG 80 (0-99); MEAN CELL HEMOGLOBIN 30.2 pg (27.9-34.1); MEAN CELL VOLUME 91.4 fL (81.5-99.8); MEAN PLATELET VOLUME 9.7 fL (8.7-11.7); PLATELET CLUMPS FLAG 0 (0-99); PLATELET COUNT 433 10^3/uL (150-400); RED BLOOD CELL COUNT 3.15 10^6/uL (4.40-6.38); RED CELL DISTRIBUTION WIDTH 13.6 % (11.5-15.2)
[2017-04-19] MEDS: IPRATROPIUM/ALBUTEROL 3 ML DEYVIAL IH SCH ×4 (05:08→23:42)
[2017-04-19] MEDS: cefTRIAXone 2 GM in D5W 50 ML IV SCH (09:01)
[2017-04-19] MEDS: CHOLECALCIFEROL VIT D3 1,000 UNITS TAB PO SCH (09:01)
[2017-04-19] MEDS: SENNOSIDES/DOCUSATE SODIUM TAB PO SCH ×2 (09:02→21:18)
[2017-04-19] MEDS: APIXABAN 5 MG TAB PO SCH ×2 (09:02→21:20)
[2017-04-19] MEDS: CALCIUM CARBONATE 500 MG TAB PO SCH (09:02)
[2017-04-19] MEDS: OMEGA-3 FATTY ACIDS 1,000 MG CAP PO SCH ×2 (09:02→21:23)
[2017-04-19] MEDS: SOTALOL HCL 80 MG TAB PO SCH ×2 (09:03→21:24)
[2017-04-19] MEDS: ASCORBIC ACID 500 MG TAB PO SCH (09:04)
[2017-04-19] MEDS: IPRATROPIUM HFA INHALER IH PRN (09:43)
--- NOTE | 2017-04-19 13:51 | PDCONSULT ---
Client Director Note: CXR shows improvement in aeration with no pneumothorax/persistant LLL consolidation CT output minimal cultures no growth at [address] removed using sterile technique will obtain repeat CXR and monitor clinically Salome Carballo MD, FACS
--- NOTE | 2017-04-19 16:27 | HOSPPROG ---
Hospitalist Progress Note Assessment/Plan: 61-year-old man with perirectal abscess. It was drained 2 days [employer] at [facility] and started on antibiotics Levaquin and Flagyl. The patient did not start the Levaquin but did start the Flagyl postop. He was admitted with increasing left- sided chest pain and was diagnosed with a left lower lobe pneumonia with microabscesses. # Acute left lower lobe pneumonia with microabscesses/?empyema - s/p VATS 04/15. BCx's, pleural fluid Cx from OR NGTD though GPC's on GS. WBC's trending down. CT removed 04/19 per surgery. Rpt CXR (personally reviewed and interpreted) persistent left pleural effusion and PNA, though looks like a little improvement Oxygen saturations 97%, down to 2 L - Atbx changed to Erta - ID following, appreciate assistance # Perirectal abscess, drained 2 days [employer] at [facility] by Dr. Sherman. Not entirely drained by initial procedure. I phoned ERNIE Whitman and obtained Cx: Rare E coli and Mod streptococcus Anginosus. The E coli is resistant to ceftriaxone. Reviewed with ID. CT pelvis yesterday shows persistent, though smaller, abscess. s/p OR drainage and drain placed 04/12 (now removed) - Change to Ertapenem per ID - Continue pain control, Oxycodone and Dilaudid doses up-titrated yesterday due to poor pain control # hypotension- SBP's improved - holding KENDALL inhibitor - hold parameters on sotalol # history of ventricular arrhythmias status post AICD placement - continue sotalol. # atrial fibrillation - currently rate controlled - continue Eliquis and sotalol # COPD- cont duonebs # Anxiety, severe. cont prn ativan. # diet tolerating regular # prophylaxis - On Eliquis # disposition greater than 2 midnights as patient requiring IV antibiotics for micro abscesses of the lung and repeat perirectal drainage and management of pleural effusion Subjective: Pt feels ok. Pain improved with removal of chest tube. No fevers. No cough, CP or SOB. Taking po well Objective: Vital Signs Temp Pulse Resp BP Pulse Ox 36.8 C 70 12 107/62 97 04/19/17 15:50 04/19/17 16:03 04/19/17 16:03 04/19/17 15:50 04/19/17 16:03 Microbiology 04/15/17 09:41 Gram Stain - Final Other - Tissue 04/15/17 09:36 Gram Stain - Final Pleural Fluid - Other 04/12/17 11:42 Gram Stain - Final Buttock - Eswab Anaerobic Culture - Final 04/15/17 09:41 Mycobacterial Smear (WILL) - Final Other - Tissue 04/15/17 09:36 Mycobacterial Smear (WILL) - Final Pleural Fluid - Other Laboratory Results 04/19/17 03:22 04/18/17 03:16 04/18/17 04/19/17 04/20/17 05:59 05:59 05:59 Intake Total 2402 1110 100 Output Total 3690 2300 10 Balance -1288 -1190 90 PT 16.1 SEC (12.0-15.0) H 04/11/17 04:19 INR 1.29 (0.83-1.16) H 04/11/17 04:19 - Physical Exam Constitutional: no apparent distress Eyes: PERRL Ears, Nose, Mouth, Throat: moist mucous membranes Cardiovascular: regular rate and rhythym Respiratory: no respiratory distress, reduced air movement Gastrointestinal: normoactive bowel sounds, soft, non-tender abdomen Skin: warm, normal color Musculoskeletal: full muscle strength Neurologic: AAOx3 Psychiatric: interacting appropriately ICD10 Worksheet Patient Problems: Problems Problem Status Onset Paracolic abscess Acute Pneumonia Acute Abdominal pain Acute Acute respiratory failure with hypoxia Acute COPD with acute exacerbation Acute Chronic chest pain Acute ICD (implantable cardioverter-defibrillator) in place Acute ICD (implantable cardioverter-defibrillator), dual, in situ Acute Mass of cecum Acute Pericarditis Acute Small bowel obstruction Acute
--- NOTE | 2017-04-19 17:04 | PCMIDPN ---
Assessment/Plan: Assessment: Pelvic abscess off the sigmoid colon. E coli and Streptococcus anginosus in initial culture from 1st drainage at [facility]. Polymicrobial tyesha from our culture. Patient is continuing on ceftriaxone and Flagyl. Sensitivity report on the E coli shows cephalosporin resistance but not penicillin resistance. Will change to ertapenem empirically. CT scan showed significant reduction in size of abscess but there is still a small amount remaining. Left lower lobe complex pneumonia with complicated effusion. Status post VATS procedure on 04/14/2017. GPCs in Gram stain but nothing growing yet. Suspect this process will be covered appropriately with ertapenem. Plan: 1. Discontinue ceftriaxone and Flagyl.. 2. Start ertapenem 1 g IV Q 24. Subjective: Patient is resting comfortably in his hospital bed. No new issues. Denies fevers or chills. Chest tube removed today. Objective: Ceftriaxone #8 Flagyl #7 Vital Signs Temp Pulse Resp BP Pulse Ox 36.8 C 70 12 107/62 97 04/19/17 15:50 04/19/17 16:03 04/19/17 16:03 04/19/17 15:50 04/19/17 16:03 Microbiology 04/15/17 09:41 Gram Stain - Final Other - Tissue 04/15/17 09:36 Gram Stain - Final Pleural Fluid - Other 04/12/17 11:42 Gram Stain - Final Buttock - Eswab Anaerobic Culture - Final 04/15/17 09:41 Mycobacterial Smear (WILL) - Final Other - Tissue 04/15/17 09:36 Mycobacterial Smear (WILL) - Final Pleural Fluid - Other Laboratory Results 04/19/17 03:22 04/18/17 03:16 04/18/17 04/19/17 04/20/17 05:59 05:59 05:59 Intake Total 2402 1110 100 Output Total 3690 2300 460 Balance -1288 -1190 -360 C-Reactive Protein 196.8 mg/L (<10.0) H 04/12/17 03:50 - Physical Exam General Appearance: WD/WN, alert, no apparent distress, non-toxic Respiratory: lungs clear, normal breath sounds, No respiratory distress Cardiac/Chest: regular rate, rhythm, No tachycardia Extremities: non-tender, normal inspection Skin: normal color, warm/dry, No rash Neuro/Psych: alert, normal mood/affect, oriented x 3 ICD10 Worksheet Patient Problems: Problems Problem Status Onset Paracolic abscess Acute Pneumonia Acute Abdominal pain Acute Acute respiratory failure with hypoxia Acute COPD with acute exacerbation Acute Chronic chest pain Acute ICD (implantable cardioverter-defibrillator) in place Acute ICD (implantable cardioverter-defibrillator), dual, in situ Acute Mass of cecum Acute Pericarditis Acute Small bowel obstruction Acute
[2017-04-19] MEDS: COLCHICINE 0.6 MG CAP/TAB PO SCH (21:23)
[2017-04-19] MEDS: ATORVASTATIN CALCIUM 20 MG TAB PO SCH (21:24)
[2017-04-19] MEDS: CYANO/VITAMIN B12 1000 MCG TAB PO SCH (21:25)
[2017-04-19] MEDS: MULTIVITAMINS 1 EACH TAB PO SCH (21:27)
[2017-04-19] MEDS ORDERED: metroNIDAZOLE 500 MG TAB PO SCH (22:00)
[2017-04-19] MEDS: ASPIRIN 81 MG CHEWABLE TAB PO SCH (22:30)
[2017-04-20] MEDS: IPRATROPIUM/ALBUTEROL 3 ML DEYVIAL IH SCH ×3 (04:48→17:26)
[2017-04-20 04:54] LABS: % IMMATURE GRANULYOCYTES 0.6 % (0.0-1.1); ADD DIFF? NO; ADD MORPH? NO; ADD SCAN? NO; ATYPICAL LYMPHOCYTE FLAG 30 (0-99); FRAGMENT RBC FLAG 0 (0-99); HEMATOCRIT 31.4 % (40.0-51.0); HEMOGLOBIN 10.5 g/dL (13.7-17.5); LEFT SHIFT FLG 10 (0-99); LIPEMIA HEMOLYSIS FLAG 80 (0-99); MEAN CELL HEMOGLOBIN 30.5 pg (27.9-34.1); MEAN CELL HEMOGLOBIN CONCENTR. 33.4 g/dL (32.4-36.7); MEAN CELL VOLUME 91.3 fL (81.5-99.8); MEAN PLATELET VOLUME 9.8 fL (8.7-11.7); PLATELET CLUMPS FLAG 10 (0-99); PLATELET COUNT 455 10^3/uL (150-400); RED BLOOD CELL COUNT 3.44 10^6/uL (4.40-6.38); RED CELL DISTRIBUTION WIDTH 13.7 % (11.5-15.2)
[2017-04-20] MEDS: ERTAPENEM 1 GM in NS 100 ML IV SCH (08:43)
[2017-04-20] MEDS: SENNOSIDES/DOCUSATE SODIUM TAB PO SCH ×2 (08:44→21:20)
[2017-04-20] MEDS: OMEGA-3 FATTY ACIDS 1,000 MG CAP PO SCH ×2 (08:46→20:45)
[2017-04-20] MEDS: CHOLECALCIFEROL VIT D3 1,000 UNITS TAB PO SCH (08:47)
[2017-04-20] MEDS: CALCIUM CARBONATE 500 MG TAB PO SCH (08:48)
[2017-04-20] MEDS: SOTALOL HCL 80 MG TAB PO SCH ×2 (08:48→20:46)
[2017-04-20] MEDS: APIXABAN 5 MG TAB PO SCH ×2 (08:49→20:46)
[2017-04-20] MEDS: ASCORBIC ACID 500 MG TAB PO SCH (08:49)
[2017-04-20] MEDS: oxyCODONE IR 5 MG TAB PO PRN ×4 (10:07→22:08)
[2017-04-20] MEDS ORDERED: ALTEPLASE 2 MG VIAL IVP PRN (10:11)
--- NOTE | 2017-04-20 10:16 | PCMIDPN ---
Assessment/Plan: # Perirectal abscess s/p drain placement in perirectal abscess 04/12/2017 (now removed).: cx at OSH showed e coli and strep. E coli S: Augmentin, ertapenem but resistant to cephalosporins. Cx here polymicrobial. CT from 2 days reviewed and shows abscess smaller --continue ertapenem 1gm IV daily. Antibiotics for 2-4 weeks, 05/03 stop date and re-assess as outpatient to continue to 4 weeks. Stop date based on starting ertapenem yesterday --place PICC line # Lung abscess/empyema LLL : VATS 04/15/2017, gram stain with GPC, cx remain negative, chest tube removed yesterday -- now on ertapenem # Leukocytosis : generally improving, can be slow to resolve with severe lung infections. medications ertapenem 1 g IV daily, # 2 microbiology outside hospital perirectal cx :E coli and Streptococcus 04/11 blood cultures 2 sets: neg 04/12: perirectal abscess culture: Polymicrobial 04/15: pleural fluid +GPC; NGTD Subjective: feeling a little better BM yesterday Objective: Vital Signs Temp Pulse Resp BP Pulse Ox 36.6 C 60 19 101/62 94 04/20/17 07:56 04/20/17 07:56 04/20/17 07:56 04/20/17 07:56 04/20/17 07:56 Microbiology 04/15/17 09:41 Gram Stain - Final Other - Tissue 04/15/17 09:36 Gram Stain - Final Pleural Fluid - Other 04/12/17 11:42 Gram Stain - Final Buttock - Eswab Anaerobic Culture - Final Laboratory Results 04/20/17 03:24 04/18/17 03:16 04/19/17 04/20/17 04/21/17 05:59 05:59 05:59 Intake Total 1110 1380 Output Total 2300 1460 Balance -1190 -80 C-Reactive Protein 196.8 mg/L (<10.0) H 04/12/17 03:50 - Physical Exam General Appearance: alert, no apparent distress EENT: pale conjunctiva, No thrush Respiratory: other ( decreased breath sounds 1/3 on the base on the left), No accessory muscle use Neck: supple Cardiac/Chest: regular rate, rhythm Extremities: pedal edema Abdomen: non-tender, soft Male Genitalia: No arizmendi Neuro/Psych: alert, oriented x 3, depressed affect - Line/s PIV Lines: other ( left wrist), No drainage, No erythema - Time Spent With Patient Time Spent with Patient: greater than 35 minutes (care coordinated with Dr Iram Tim and Dr. Jerrod Carballo) Time Spent with Patient: Greater than 35 minutes spent on this patients care, greater than 50% of time spent counseling, educating, and coordinating care regarding the above mentioned plan. ICD10 Worksheet Patient Problems: Problems Problem Status Onset Paracolic abscess Acute Pneumonia Acute Abdominal pain Acute Acute respiratory failure with hypoxia Acute COPD with acute exacerbation Acute Chronic chest pain Acute ICD (implantable cardioverter-defibrillator) in place Acute ICD (implantable cardioverter-defibrillator), dual, in situ Acute Mass of cecum Acute Pericarditis Acute Small bowel obstruction Acute
--- NOTE | 2017-04-20 10:24 | HOSPPROG ---
Hospitalist Progress Note Assessment/Plan: 61-year-old man with perirectal abscess. It was drained 2 days [facility]DR[facility] at [facility] and started on antibiotics Levaquin and Flagyl. The patient did not start the Levaquin but did start the Flagyl postop. He was admitted with increasing left- sided chest pain and was diagnosed with a left lower lobe pneumonia with microabscesses. # Acute left lower lobe pneumonia with microabscesses, empyema by gram stain - s /p VATS 04/15. BCx's, pleural fluid Cx from OR NGTD though GPC's on GS. WBC's trending down. CT removed 04/19 per surgery. Discussed with ID and surgery. 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 Not entirely drained by initial procedure. I phoned ERNIE Whitman and obtained Cx: Rare E coli and Mod streptococcus Anginosus. The E coli is resistant to ceftriaxone. Reviewed with ID. CT pelvis yesterday shows persistent, though smaller, abscess, likely too small to drain <2 cm. s/p OR drainage and drain placed 04/12 (now removed) - Changed to Ertapenem per ID - Continue pain control, Oxycodone and Dilaudid # hypotension- SBP's improved - holding KENDALL inhibitor # history of ventricular arrhythmias status post AICD placement - continue sotalol. # atrial fibrillation - currently rate controlled - continue Eliquis and sotalol - stable, dc tele # COPD- cont duonebs # Anxiety, severe. cont prn ativan. # diet tolerating regular # prophylaxis - On Eliquis # disposition - cont inpt. Nearing d/c, awaiting therarpy recs regarding home with HH / home infusion and 24 hr supervision vs SNF rehab. Pt currently living in hotel as they just sold their house. Subjective: Pt feels ok. Complains of some left sided pain related to his PNA and chest tube site. No fevers. Not much coughing. No rectal pain. Taking po well. Objective: Vital Signs Temp Pulse Resp BP Pulse Ox 36.6 C 60 19 101/62 94 04/20/17 07:56 04/20/17 07:56 04/20/17 07:56 04/20/17 07:56 04/20/17 07:56 Microbiology 04/15/17 09:41 Gram Stain - Final Other - Tissue 04/15/17 09:36 Gram Stain - Final Pleural Fluid - Other 04/12/17 11:42 Gram Stain - Final Buttock - Eswab Anaerobic Culture - Final Laboratory Results 04/20/17 03:24 04/18/17 03:16 04/19/17 04/20/17 04/21/17 05:59 05:59 05:59 Intake Total 1110 1380 Output Total 2300 1460 Balance -1190 -80 PT 16.1 SEC (12.0-15.0) H 04/11/17 04:19 INR 1.29 (0.83-1.16) H 04/11/17 04:19 - Physical Exam Constitutional: no apparent distress Eyes: PERRL Ears, Nose, Mouth, Throat: moist mucous membranes Cardiovascular: regular rate and rhythym Respiratory: no respiratory distress, reduced air movement, inspiratory crackles Gastrointestinal: normoactive bowel sounds, soft, non-tender abdomen Skin: warm Musculoskeletal: full muscle strength Neurologic: AAOx3 Psychiatric: interacting appropriately ICD10 Worksheet Patient Problems: Problems Problem Status Onset Paracolic abscess Acute Pneumonia Acute Abdominal pain Acute Acute respiratory failure with hypoxia Acute COPD with acute exacerbation Acute Chronic chest pain Acute ICD (implantable cardioverter-defibrillator) in place Acute ICD (implantable cardioverter-defibrillator), dual, in situ Acute Mass of cecum Acute Pericarditis Acute Small bowel obstruction Acute
[2017-04-20] MEDS ORDERED: KETOROLAC 30 MG/1 ML SDV IVP ONE (13:46)
[2017-04-20] MEDS: ACETAMINOPHEN 325 MG TAB PO PRN (13:51)
[2017-04-20] MEDS: COLCHICINE 0.6 MG CAP/TAB PO SCH (20:45)
[2017-04-20] MEDS: ATORVASTATIN CALCIUM 20 MG TAB PO SCH (20:45)
[2017-04-20] MEDS: CYANO/VITAMIN B12 1000 MCG TAB PO SCH (20:45)
[2017-04-20] MEDS: MULTIVITAMINS 1 EACH TAB PO SCH (20:46)
[2017-04-20] MEDS: ASPIRIN 81 MG CHEWABLE TAB PO SCH (20:46)
[2017-04-21] MEDS: IPRATROPIUM/ALBUTEROL 3 ML DEYVIAL IH SCH ×3 (00:20→11:17)
[2017-04-21] MEDS: oxyCODONE IR 5 MG TAB PO PRN ×4 (04:32→16:12)
[2017-04-21 05:01] LABS: % IMMATURE GRANULYOCYTES 0.5 % (0.0-1.1); ABSOLUTE IMMATURE GRANULOCYTES 0.05 10^3/uL (0.00-0.10); ADD DIFF? NO; ADD MORPH? NO; ADD SCAN? NO; ATYPICAL LYMPHOCYTE FLAG 30 (0-99); FRAGMENT RBC FLAG 0 (0-99); HEMATOCRIT 30.3 % (40.0-51.0); HEMOGLOBIN 9.9 g/dL (13.7-17.5); LEFT SHIFT FLG 10 (0-99); LIPEMIA HEMOLYSIS FLAG 80 (0-99); MEAN CELL HEMOGLOBIN 30.1 pg (27.9-34.1); MEAN CELL HEMOGLOBIN CONCENTR. 32.7 g/dL (32.4-36.7); MEAN CELL VOLUME 92.1 fL (81.5-99.8); MEAN PLATELET VOLUME 9.5 fL (8.7-11.7); PLATELET CLUMPS FLAG 20 (0-99); PLATELET COUNT 449 10^3/uL (150-400); RED BLOOD CELL COUNT 3.29 10^6/uL (4.40-6.38); RED CELL DISTRIBUTION WIDTH 13.6 % (11.5-15.2)
[2017-04-21 05:14] LABS: ANION GAP 6 mEq/L (8-16); CALCIUM 8.2 mg/dL (8.5-10.4); CARBON DIOXIDE 29 mEq/l (22-31); CHLORIDE 100 mEq/L (97-110); CREATININE 0.7 mg/dL (0.7-1.3); GLOMERULAR FILTRATION RATE > 60; GLUCOSE 96 mg/dL (70-100); POTASSIUM 4.4 mEq/L (3.5-5.2); SODIUM 135 mEq/L (134-144)
[2017-04-21] MEDS: SOTALOL HCL 80 MG TAB PO SCH (08:18)
[2017-04-21] MEDS: ERTAPENEM 1 GM in NS 100 ML IV SCH (08:18)
[2017-04-21] MEDS: APIXABAN 5 MG TAB PO SCH (08:20)
[2017-04-21] MEDS: ASCORBIC ACID 500 MG TAB PO SCH (08:20)
[2017-04-21] MEDS: CALCIUM CARBONATE 500 MG TAB PO SCH (08:20)
[2017-04-21] MEDS: OMEGA-3 FATTY ACIDS 1,000 MG CAP PO SCH (08:20)
[2017-04-21] MEDS: CHOLECALCIFEROL VIT D3 1,000 UNITS TAB PO SCH (08:20)
[2017-04-21] MEDS: SENNOSIDES/DOCUSATE SODIUM TAB PO SCH (08:33)
--- NOTE | 2017-04-21 09:01 | HOSPPROG ---
Hospitalist Progress Note Assessment/Plan: #Left lung empyema: s/p VATs 04/15. Cont Ertapenem #Polymicrobial perirectal abscess: s/p drain (04/12). Ertapenem. Abx through 05/03 #h/o vent arrhymia: AICD. Sotalol #A fib: rate-controlled. Eliquis, rate-controlled #COPD #Anxiety #Acute CP: due to infection, surgical procedure #Disp: DC today. FU ID, cardiology. Home health for IV abx Subjective: CP improved with pain meds Objective: Vital Signs Temp Pulse Resp BP Pulse Ox 36.8 C 70 17 96/53 L 96 04/21/17 08:00 04/21/17 08:00 04/21/17 08:00 04/21/17 08:00 04/21/17 08:00 Microbiology 04/15/17 09:41 Gram Stain - Final Other - Tissue 04/15/17 09:36 Gram Stain - Final Pleural Fluid - Other Laboratory Results 04/21/17 03:38 04/21/17 03:38 04/20/17 04/21/17 04/22/17 05:59 05:59 05:59 Intake Total 1380 1100 Output Total 1460 Balance -80 1100 PT 16.1 SEC (12.0-15.0) H 04/11/17 04:19 INR 1.29 (0.83-1.16) H 04/11/17 04:19 - Physical Exam Constitutional: no apparent distress Eyes: PERRL Ears, Nose, Mouth, Throat: moist mucous membranes Cardiovascular: regular rate and rhythym, no murmur, rub, or gallop Respiratory: no respiratory distress Gastrointestinal: normoactive bowel sounds Genitourinary: no bladder fullness Skin: warm Musculoskeletal: other (surgical incision, C/D/I) Neurologic: AAOx3, CN II-XII Intact ICD10 Worksheet Patient Problems: Problems Problem Status Onset COPD with acute exacerbation Acute Acute respiratory failure with hypoxia Acute ICD (implantable cardioverter-defibrillator) in place Acute ICD (implantable cardioverter-defibrillator), dual, in situ Acute Pericarditis Acute Abdominal pain Acute Small bowel obstruction Acute Mass of cecum Acute Chronic chest pain Acute Pneumonia Acute Paracolic abscess Acute
[2017-04-21 12:11] VITALS: BP 112/70; PULSE 69; RESP 18; TEMP 98
--- NOTE | 2017-04-21 14:23 | PDIAF ---
- Diagnosis Diagnosis: empyema Code Status: Full Code - Medication Management Discharge Medications: Medications to Continue on Transfer Albuterol [Proventil Inhaler HFA (*)] 2 puffs IH BID PRN 04/05/15 [Last Taken ] Apixaban [Eliquis] 5 mg PO BID 04/24/15 [Last Taken 04/10/17 20:00] Aspirin [Aspirin 81mg (*)] 81 mg PO HS 04/24/15 [Last Taken 04/10/17] Herbals/Supplements -Info Only 1 each PO DAILY 04/24/15 [Last Taken 10/20/15] Ipratropium [Atrovent Hfa (*)] 2 puffs IH Q6 PRN 05/28/15 [Last Taken 10/20/15] Sotalol HCl [Sotalol] 120 mg PO BID 05/28/15 [Last Taken 04/10/17 21:00] Calcium Citrate [Citracal] 400 mg PO DAILY 06/04/15 [Last Taken 04/10/17] Cholecalciferol Vit D3 [Vitamin D3 2000 units] 4,000 units PO DAILY 06/04/15 [ Last Taken 04/10/17] Cyanocobalamin [Vitamin B12 (*)] 2,000 mcg PO HS 06/04/15 [Last Taken 04/10/17] Multivitamins [Multivitamin (*)] 1 each PO HS 06/18/15 [Last Taken 04/10/17] Ascorbic Acid [Vitamin C 500 mg (*)] 1,000 mg PO DAILY 04/11/17 [Last Taken 03/20] Atorvastatin Calcium [Lipitor 20 mg (*)] 20 mg PO HS 04/11/17 [Last Taken ] Colchicine [Colchicine (*)] 0.6 mg PO HS 04/11/17 [Last Taken 04/10/17] Glucosamine/Chondroitin [Glucosamine/Chondroitin (*)] 1 each PO DAILY 04/11/17 [ Last Taken 04/10/17] Lisinopril [Zestril 2.5 mg (*)] 2.5 mg PO HS 04/11/17 [Last Taken 04/10/17] [place]-3 Fatty Acids [Fish Oil 1000 mg (*)] 2,000 mg PO BID 04/11/17 [Last Taken 04/10/17 21:00] levOFLOXACIN [levAQUIN (*)] 750 mg PO DAILY 04/11/17 [Last Taken Unknown] metroNIDAZOLE [Flagyl 500 mg (*)] 500 mg PO TID 04/11/17 [Last Taken 04/10/17 20 :00] oxyCODONE/APAP 5/325 [Percocet 5/325 (*)] 1 - 2 tab PO Q6H PRN 04/11/17 [Last Taken 04/10/17 20:00] Discharge Medications: Refer to the Discharge Home Medication list for PRN reason. - Orders Services needed: Home Care, Registered Nurse, Physical Therapy Home Care Face to Face: I certify that this patient was under my care and that I had the required [id number] encounter meeting the encounter requirements on the discharge day. My findings support the fact that the patient is homebound as defined in CMS Chapter 7 Medicare Benefits Manual 30.1.1, The condition of the patient is such that there exists a normal inability to leave home and consequently, leaving home would require a considerable and taxing effort. Diet Recommendation: no restrictions on diet - Follow Up Care Current Providers and Referrals: NONE *PRIMARY CARE P,. [Primary Care Provider] - As per Instructions Brian Basurto MD [Medical Doctor] -
--- NOTE | 2017-04-21 14:36 | PDIAF ---
- Diagnosis Diagnosis: empyema Code Status: Full Code - Medication Management Discharge Medications: Medications to Continue on Transfer Albuterol [Proventil Inhaler HFA (*)] 2 puffs IH BID PRN 04/05/15 [Last Taken ] Apixaban [Eliquis] 5 mg PO BID 04/24/15 [Last Taken 04/10/17 20:00] Aspirin [Aspirin 81mg (*)] 81 mg PO HS 04/24/15 [Last Taken 04/10/17] Herbals/Supplements -Info Only 1 each PO DAILY 04/24/15 [Last Taken 10/20/15] Ipratropium [Atrovent Hfa (*)] 2 puffs IH Q6 PRN 05/28/15 [Last Taken 10/20/15] Sotalol HCl [Sotalol] 120 mg PO BID 05/28/15 [Last Taken 04/10/17 21:00] Calcium Citrate [Citracal] 400 mg PO DAILY 06/04/15 [Last Taken 04/10/17] Cholecalciferol Vit D3 [Vitamin D3 2000 units] 4,000 units PO DAILY 06/04/15 [ Last Taken 04/10/17] Cyanocobalamin [Vitamin B12 (*)] 2,000 mcg PO HS 06/04/15 [Last Taken 04/10/17] Multivitamins [Multivitamin (*)] 1 each PO HS 06/18/15 [Last Taken 04/10/17] Ascorbic Acid [Vitamin C 500 mg (*)] 1,000 mg PO DAILY 04/11/17 [Last Taken 03/20] Atorvastatin Calcium [Lipitor 20 mg (*)] 20 mg PO HS 04/11/17 [Last Taken ] Colchicine [Colchicine (*)] 0.6 mg PO HS 04/11/17 [Last Taken 04/10/17] Glucosamine/Chondroitin [Glucosamine/Chondroitin (*)] 1 each PO DAILY 04/11/17 [ Last Taken 04/10/17] Lisinopril [Zestril 2.5 mg (*)] 2.5 mg PO HS 04/11/17 [Last Taken 04/10/17] [place]-3 Fatty Acids [Fish Oil 1000 mg (*)] 2,000 mg PO BID 04/11/17 [Last Taken 04/10/17 21:00] oxyCODONE/APAP 5/325 [Percocet 5/325 (*)] 1 - 2 tab PO Q6H PRN 04/11/17 [Last Taken 04/10/17 20:00] Ertapenem [INVanz] 1 gm IV DAILY vial 04/21/17 [Last Taken Unknown] Java J2Ee Lead Antibiotics: ertapenem 1 g IV q daily Java J2Ee Lead Antibiotic Stop Date: 05/03/17 Discharge Medications: Refer to the Discharge Home Medication list for PRN reason. PICC Care - Routine: Yes - Orders Services needed: Home Care, Registered Nurse, Physical Therapy Home Care Face to Face: I certify that this patient was under my care and that I had the required [id number] encounter meeting the encounter requirements on the discharge day. My findings support the fact that the patient is homebound as defined in CMS Chapter 7 Medicare Benefits Manual 30.1.1, The condition of the patient is such that there exists a normal inability to leave home and consequently, leaving home would require a considerable and taxing effort. Diet Recommendation: no restrictions on diet - Labs/Radiology CBC Date: 04/24/17 (weekly) CMP Date: 04/24/17 (weekly) Call or Fax Lab and Imaging Results to: Dr. Meera Quiles - Follow Up Care Current Providers and Referrals: Brian Basurto MD [Medical Doctor] - NONE *PRIMARY CARE P,. [Primary Care Provider] - As per Instructions
--- NOTE | 2017-04-21 15:20 | PCMIDPN ---
Assessment/Plan: Assessment: Pelvic abscess off the sigmoid colon. E coli and Streptococcus anginosus in initial culture from 1st drainage at [facility]. Polymicrobial tyesha from our culture. Patient is continuing on ertapenem. Sensitivity report on the E coli shows cephalosporin resistance but not penicillin resistance. CT scan showed significant reduction in size of abscess but there is still a small amount remaining. Left lower lobe complex pneumonia with complicated effusion. Status post VATS procedure on 04/14/2017. GPCs in Gram stain but nothing growing yet. Suspect this process will be covered appropriately with ertapenem. Plan: 1. Continue ertapenem 1 g IV Q 24. 2. Arrange for patient to continue IV antibiotics as an outpatient. Follow up in clinic in approximately 7-10 days. 04/21/17 15:18 Subjective: Patient is resting comfortably in his hospital bed. He states he feels improved. No new complaints. Tolerating ertapenem without issue. Objective: Ertapenem # 2 Vital Signs Temp Pulse Resp BP Pulse Ox 36.6 C 69 18 112/70 86 L 04/21/17 12:00 04/21/17 12:00 04/21/17 12:00 04/21/17 12:00 04/21/17 15:16 Microbiology 04/15/17 09:41 Gram Stain - Final Other - Tissue 04/15/17 09:36 Gram Stain - Final Pleural Fluid - Other Laboratory Results 04/21/17 03:38 04/21/17 03:38 04/20/17 04/21/17 04/22/17 05:59 05:59 05:59 Intake Total 1380 1100 Output Total 1460 Balance -80 1100 C-Reactive Protein 196.8 mg/L (<10.0) H 04/12/17 03:50 - Physical Exam General Appearance: WD/WN, alert, no apparent distress, non-toxic Respiratory: lungs clear, normal breath sounds, No respiratory distress Cardiac/Chest: regular rate, rhythm, No tachycardia Skin: normal color, warm/dry, No rash Neuro/Psych: alert, normal mood/affect, oriented x 3 ICD10 Worksheet Patient Problems: Problems Problem Status Onset Paracolic abscess Acute Pneumonia Acute Abdominal pain Acute Acute respiratory failure with hypoxia Acute COPD with acute exacerbation Acute Chronic chest pain Acute ICD (implantable cardioverter-defibrillator) in place Acute ICD (implantable cardioverter-defibrillator), dual, in situ Acute Mass of cecum Acute Pericarditis Acute Small bowel obstruction Acute
--- NOTE | 2017-04-21 16:07 | PDHOMEO2F ---
Home Oxygen Face to Face Home Orders: I certify that a physician or a nurse practitioner or physician's family assistant has had a [id number] encounter with this patient on the date of this order due to the diagnosis listed, which relates to the primary reason the patient requires home oxygen. Alternative treatments have been tried, or considered, and deemed ineffective. It is anticipated that supplemental oxygen will result in improvement with treatment. Home oxygen qualifying diagnosis: Hypoxia Home oxygen secondary diagnosis: Empyema SpO2 on room air (%): 86 Frequency of home oxygen needed: with activity Home oxygen liters per minute: 2 Home oxygen delivery device: nasal cannula Concentrator: Yes E-tanks for mobility and back up: No I certify that, based on these findings, the home oxygen is medically necessary for this patient for the following length of time. Length of time home oxygen needed: 1 month Home Oxygen Comment: Follow up with PCP
[2017-04-21 16:14] VITALS: O2SAT 86
--- NOTE | 2017-04-21 19:22 | GDS ---
[f rep st] DISCHARGE SUMMARY DISCHARGE DIAGNOSES: 1. Polymicrobial perirectal abscess. 2. Acute left lower lobe pneumonia with empyema. 3. Hypotension. 4. History of ventricular arrhythmias, status post automatic implantable cardioverter defibrillator placement, atrial fibrillation. 5. Chronic obstructive pulmonary disease. 6. Anxiety. 7. Incision and drainage of a perirectal abscess 04/12/2017. 8. Video-assisted thoracic surgery decortication 04/15/2017. HISTORY OF PRESENT ILLNESS: a 61-year-old male with history of ventricular arrhythmia, status post AICD, atrial fibrillation, cardiomyopathy, who presented with left-sided chest pain. Ten days prior to admission, he developed lower back and perirectal pain with loose stools. He presented to [facility] ED 04/09, and was found to have a 6 x 5 cm perirectal abscess that was drained same day, and was discharged with 7 days of Flagyl and levofloxacin. A day prior to this admission, he noticed increased fatigue and left-sided chest wall pain. No fevers, chills, or sweats. No cough or sputum production. He denies any weight loss. HOSPITAL COURSE BY PROBLEM: 1. Polymicrobial perirectal abscess: Initially underwent I/D at [facility]. He underwent a second I/ D here by Surgery. Treatment with Ertapenem through 05/03/2017 per ID recommendations. 2. Left lower lung pneumonia/empyema: Status post VATS and decortication. Gram stain with GPCs. We will continue meropenem as stated above. 3. Leukocytosis: Resolved with antibiotics. 4. History of ventricular arrhythmias: Continue sotalol, status post AICD. 5. Atrial fibrillation: Eliquis and sotalol. 6. COPD: No evidence of exacerbation now. Continue DuoNebs while here. 7. Anxiety: P.r.n. Ativan. 8. Acute chest pain: secondary to empyema and surgical procedure. We will discharge on small amount of opioids. 9. Thrombocytosis: due to acute infection. Disp: discharge to hotel where he is living since he sold his home. Will continue home care for IV antibiotics through 05/03/2017. FOLLOWUP: 1. Follow up with Infectious Disease as scheduled, follow weekly labs. 2. Follow up with Cardiology as scheduled. /[id number]/MODL MTDD
== END 2017-04-21 17:07 | disposition home health service (06) | DRG 164 ==
LOC: F2W 06:30
PROVIDERS: ADMIT Student in an Organized Health Care Education/Training Program; ATTEND Student in an Organized Health Care Education/Training Program
PROC: 0J9B3ZZ Drainage of Perineum Subcutaneous Tissue and Fascia, Percutaneous Approach (ICD-10-PCS; 2017-04-12)
PROC: 0BBL4ZZ Excision of Left Lung, Percutaneous Endoscopic Approach (ICD-10-PCS; principal; 2017-04-15 08:00)
DX: J85.1 Abscess of lung with pneumonia (principal); K61.1 Rectal abscess; J44.9 Chronic obstructive pulmonary disease, unspecified; I48.91 Unspecified atrial fibrillation; Z79.01 Long term (current) use of anticoagulants; Z95.810 Presence of automatic (implantable) cardiac defibrillator
CPT/HCPCS: 97112-GP; 97116-GP; 97161-GP; 97165-GO; 97530-GP; 97535-GO; C1751; J0696; J1170; J1335; J1885; J2060; J2543; J2704; J3010; J3370; Q9967; Q9968

== ENCOUNTER 2018-08-19 21:30 | Emergency (ER) | payer OTHER, MEDICARE ==
[2018-08-19 21:40] VITALS: BP 157/100
--- NOTE | 2018-08-19 21:52 | EDPHY ---
H & P Stated Complaint: choked on pill at 1930[facility]ergio Time Seen by Provider: 08/19/18 21:52 HPI/ROS: HPI CHIEF COMPLAINT: "Choked on a Pill" HISTORY OF PRESENT ILLNESS: 63-year-old male, history of AICD, pericardiocentesis, ischemic cardiomyopathy, PTSD, coronary artery disease, AFib , hypertension, was at his local living facility at the [facility], is taking his nightly vitamins at 7:00 p.m. Put 3 of them in his hand and went to swallow the mid felt like he choked on 1. Patient states that he began choking on his vitamin pill coughing. Burning sensation with regurg. He is unsure went down his lung or got stuck in his esophagus. This happened approximately 3 hr ago. He states he feels much better now. Able to breathe appropriately. He is not coughing. Able to drink appropriately. Denies chest pain or shortness of breath. Past Medical History: Medical history significant for ischemic cardiomyopathy, coronary artery disease, AFib, AICD, pericardiocentesis, PTSD, anxiety Past Surgical History: Left chest AICD, pericardiocentesis Social History: Tobacco use. Lives at the [facility]. Family History: Denies ROS REVIEW OF SYSTEMS: 10 Systems were reviewed and negative with the exception of the elements mentioned in the history of present illness. Exam Constitutional appears well nontoxic no acute distress triage nursing summary reviewed, vital signs reviewed, awake/alert. Eyes normal conjunctivae and sclera, EOMI, PERRLA. HENT posterior pharynx unremarkable, no stridor, able swallow appropriately, normal inspection, atraumatic, moist mucus membranes, no epistaxis, neck supple / no meningismus, no raccoon eyes. Respiratory no stridor, not cough, clear to auscultation bilaterally, normal breath sounds, no respiratory distress, no wheezing. Cardiovascular rate normal, regular rhythm, no murmur, no edema, distal pulses normal. Gastrointestinal soft, non-tender, no rebound, no guarding, normal bowel sounds, no distension, no pulsatile mass. Genitourinary no CVA tenderness. Musculoskeletal no midline vertebral tenderness, full range of motion, no calf swelling, no tenderness of extremities, no meningismus, good pulses, neurovascularly intact. Skin pink, warm, & dry, no rash, skin atraumatic. Neurologic awake, alert and oriented x 3, AAOx3, moves all 4 extremities equally, motor intact, sensory intact, CN II-XII intact, normal cerebellar, normal vision, normal speech. Psychiatric normal mood/affect. Heme/Lymph/Immune no lymphadenopathy. Differential Diagnosis: Includes but is not limited to in a particular order foreign body aspiration, foreign body in lung, foreign body in the posterior pharynx, pill esophagitis, reflux, anxiety Medical Decision Making: Plan for this patient soft tissue neck x-ray, chest x- ray two view to make sure there is no foreign body. P.o. Fluids. Re-evaluation: Patient is refusing his soft tissue neck x-ray in refusing his chest x-ray. 2250 patient was drinking fluids without difficulty. No stridor no respiratory symptoms not coughing. Patient requesting discharge. He has refused his x-ray of his chest and soft tissue neck for foreign body. He understands the risk of doing so. He understands there could be still retained foreign body that could lead to aspiration, choking, However the patient does appear well, nontoxic no acute distress swallowing and breathing appropriately. Given the patient's declining imaging however doing well I do recommend he return emergency room if he has any further complaints questions or concerns. Given that the patient is refusing imaging he will need to sign out AMA. Understands the risk of leaving without imaging and further observation. Source: Patient - Personal History Current Tetanus/Diphtheria Vaccine: Yes Current Tetanus Diphtheria and Acellular Pertussis (TDAP): Yes Tetanus Vaccine Date: > 10 years - Medical/Surgical History Hx Asthma: Yes Hx Chronic Respiratory Disease: No Hx Diabetes: No Hx Cardiac Disease: Yes Hx Renal Disease: No Hx Cirrhosis: No Hx Alcoholism: No Hx HIV/AIDS: No Hx Splenectomy or Spleen Trauma: No Other PMH: Asthma, knee surgery,afib, V-tach,AICD, HTN, panic attacks since pacemaker inserted 3 mos ago. FALL WITH BAKERS CYST R KNEE - Social History Smoking Status: Former smoker Constitutional: Initial Vital Signs Temperature (C) 36.6 C 08/19/18 21:33 Heart Rate 70 08/19/18 21:33 Respiratory Rate 18 08/19/18 21:33 Blood Pressure 157/100 H 08/19/18 21:33 O2 Sat (%) 94 08/19/18 21:33 O2 Delivery Mode Room Air Allergies/Adverse Reactions: No Known Allergies Allergy (Unverified 08/19/18 21:33) Home Medications: Medication Instructions Recorded Albuterol [Proventil Inhaler HFA 2 puffs IH BID PRN 04/05/15 (*)] Apixaban [Eliquis] 5 mg PO BID 04/24/15 Aspirin [Aspirin 81mg (*)] 81 mg PO HS 04/24/15 Herbals/Supplements -Info Only 1 each PO DAILY 04/24/15 Ipratropium [Atrovent Hfa (*)] 2 puffs IH Q6 PRN 05/28/15 Sotalol HCl [Sotalol] 120 mg PO BID 05/28/15 Calcium Citrate [Citracal] 400 mg PO DAILY 06/04/15 Cholecalciferol Vit D3 [Vitamin D3 4,000 units PO DAILY 06/04/15 2000 units] Cyanocobalamin [Vitamin B12 (*)] 2,000 mcg PO HS 06/04/15 Multivitamins [Multivitamin (*)] 1 each PO HS 06/18/15 Ascorbic Acid [Vitamin C 500 mg 1,000 mg PO DAILY 04/11/17 (*)] Atorvastatin Calcium [Lipitor 20 20 mg PO HS 04/11/17 mg (*)] Colchicine [Colchicine (*)] 0.6 mg PO HS 04/11/17 Glucosamine/Chondroitin 1 each PO DAILY 04/11/17 [Glucosamine/Chondroitin (*)] Lisinopril [Zestril 2.5 mg (*)] 2.5 mg PO HS 04/11/17 [place]-3 Fatty Acids [Fish Oil 1000 2,000 mg PO BID 04/11/17 mg (*)] Ertapenem [INVanz] 1 gm IV DAILY vial 04/21/17 Oxycodone HCl [Oxyir] 5 - 10 mg PO Q6H PRN #30 capsule 04/21/17 Departure - Departure Disposition: Against Medical Advice Clinical Impression: Choking Condition: Good Instructions: Aspiration Pneumonia (DC), Esophageal Foreign Body (ED) Referrals: Patient,NotPresent [Unknown] - As per Instructions
== END 2018-08-19 23:04 | disposition left against medical advice (07) ==
LOC: EDBD → EDUNIT#
DX: T18.108A Unspecified foreign body in esophagus causing other injury, initial encounter (principal); J45.909 Unspecified asthma, uncomplicated; F17.200 Nicotine dependence, unspecified, uncomplicated; X58.XXXA Exposure to other specified factors, initial encounter; Y92.9 Unspecified place or not applicable; Y93.9 Activity, unspecified; Y99.9 Unspecified external cause status